=== PATIENT | female | born 1980 | race Hispanic/Latino ===

== ENCOUNTER 2016-09-01 08:49 | Emergency (ER) | payer OTHER ==
[~2016-09-01] VITALS: Ht 165.1 cm; Wt 80.3 kg
[~2016-09-01 08:49] MED LIST: ACHD5005 PO; AMOX-355 PO; AZTH250C PO; NAPR500T PO; RNT150T PO
[2016-09-01 10:10] LABS: BILIRUBIN,URINE NEGATIVE (NEGATIVE); KETONES,URINE NEGATIVE (NEGATIVE); LEUKOCYTE ESTERASE ,URINE 3+ (NEGATIVE); NITRITE,URINE NEGATIVE (NEGATIVE); PH,URINE 6.5 (5-9); PROTEIN,URINE 1+ (NEGATIVE); UROBILINOGEN,URINE NORMAL (NORMAL)
[2016-09-01 10:13] LABS: BASOPHILS % (AUTO) 1 % (0-10); EOSINOPHILS # (AUTO) 0.1 10^3/uL (0.0-0.3); EOSINOPHILS % (AUTO) 1 % (0-10); LYMPHOCYTES # (AUTO) 2.4 X 10^3 (1.0-4.0); LYMPHOCYTES % (AUTO) 38 % (12-44); MEAN CORPUSCULAR HEMOGLOBIN 29 PG (25-34); MEAN CORPUSCULAR HGB CONC 34 G/DL (32-36); MEAN CORPUSCULAR VOLUME 84 FL (80-99); MEAN PLATELET VOLUME 9.3 FL (7.4-10.4); MONOCYTES # (AUTO) 0.5 X 10^3 (0.0-1.0); MONOCYTES % (AUTO) 8 % (0-12); NEUTROPHILS # (AUTO) 3.4 X 10^3 (1.8-7.8); NEUTROPHILS % (AUTO) 53 % (42-75); PLATELET COUNT 286 10^3/uL (130-400); RED BLOOD COUNT 4.34 10^6/uL (4.35-5.85); RED CELL DISTRIBUTION WIDTH 13.5 % (10.0-14.5); WHITE BLOOD COUNT 6.5 10^3/uL (4.3-11.0)
[2016-09-01 10:18] LABS: WBC,URINE 25-50 /HPF
[2016-09-01 10:31] LABS: ALANINE AMINOTRANSFERASE 24 U/L (0-55); ALBUMIN 3.9 G/DL (3.2-4.5); ANION GAP 10 MMOL/L (5-14); ASPARTATE AMINO TRANSFERASE 21 U/L (5-34); BILIRUBIN,TOTAL 0.2 MG/DL (0.1-1.0); BLOOD UREA NITROGEN 18 MG/DL (7-18); BUN/CREATININE RATIO 28; CARBON DIOXIDE 21 MMOL/L (21-32); CHLORIDE 108 MMOL/L (98-107); CREATININE SERUM 0.64 MG/DL (0.60-1.30); GFR ESTIMATED > 60; GLUCOSE 100 MG/DL (70-105); LIPASE 22 U/L (8-78); POTASSIUM 4.3 MMOL/L (3.6-5.0); SODIUM 139 MMOL/L (135-145); TOTAL PROTEIN 6.9 G/DL (6.4-8.2)
--- NOTE | 2016-09-01 11:12 | Diagnostic Imaging Report ---
INDICATION: Pelvic pain and bleeding. Pus in urine. EXAMINATION: OB sonogram less than 14 weeks 09/01/2016. FINDINGS: Within the lower uterine segment there is a large cystic area consistent with a gestational sac. It contains a small pole with no heart tones noted. Adjacent fluid along the lower uterine segment is noted. The maternal ovaries not visualized. No significant free fluid is seen. IMPRESSION: 1. Abnormally located gestational sac containing a pole but without cardiac activity. Findings most consistent with a miscarriage in progress. Followup could be performed as clinically warranted to assure the exclusion of any retained products. Dictated by: Dictated on workstation # [id number]
--- NOTE | 2016-09-01 11:23 | ED GU-Female ---
General Chief Complaint: Abdominal/GI Problems Stated Complaint: STOMACH PAIN, 12 W Nursing Triage Note: C/O lower abd pain and hip pain. Passing mucous with blood. 12 weeks gravid. Had fever yesterday, nausea Nursing Sepsis Screen: No Definite Risk Source: patient, family, historic interpreter Exam Limitations: no limitations History of Present Illness Time seen by provider: 11:19 Initial Comments The patient is a 36-year-old female who presents with complaints of abdominal pain. She is 12 weeks . She is been seen very recently by Dr. Gonzales at [facility]. Through her son as the historic interpreter it is reported that she began to have vaginal bleeding and discharge on Friday of the past week. This has increased and today it is quite painful at times. Timing/Duration: week Severity/Quality: moderate Location: suprapubic Radiation: none Allergies and Home Medications Allergies Coded Allergies: NKANo Known Allergies (Unverified Allergy, Mild, 09/01/16) Constitutional: see HPI EENTM: no symptoms reported Respiratory: no symptoms reported Cardiovascular: no symptoms reported Gastrointestinal: abdominal pain Genitourinary: dysuria Expected Date of Delivery: Mar 07, 2017 Musculoskeletal: no symptoms reported Skin: no symptoms reported Psychiatric/Neurological: No Symptoms Reported Past Lffyruk-Ppxswi-Anpaqc Hx Patient Social History Alcohol Use: Denies Use Recreational Drug Use: No Smoking Status: Never a Smoker 2nd Hand Smoke Exposure: No Recent Foreign Travel: No Contact w/Someone Who Travel: No Recent Infectious Disease Expo: No Recent Hopitalizations: No Immunizations Up To Date Tetanus Booster (TDap): Less than 5yrs Surgeries HX Surgeries: No Respiratory Hx Respiratory Disorders: No Cardiovascular Hx Cardiac Disorders: No Neurological Hx Neurological Disorders: No Reproductive System Hx : 6 Hx Para: 5 Hx Total # of Abortions (Spona: 0 Hx Reproductive Disorders: No Genitourinary Hx Genitourinary Disorders: No Gastrointestinal Hx Gastrointestinal Disorders: No Musculoskeletal Hx Musculoskeletal Disorders: No Endocrine Hx Endocrine Disorders: No HEENT HX ENT Disorders: No Psychosocial Hx Psychiatric Problems: No Blood Transfusions Hx Blood Disorders: No Physical Exam Vital Signs Vital Sign - Last 12Hours 09/01/16 09:31 Temp 98.5 Pulse 79 Resp 18 B/P 112/62 Pulse Ox 96 Capillary Refill : Less Than 3 Seconds General Appearance: other (the patient is quite histrionic) HEENT: normal ENT inspection Cardiovascular: normal peripheral pulses regular rate, rhythm no edema no gallop no JVD no murmur Respiratory: chest non-tender lungs clear normal breath sounds no respiratory distress no accessory muscle use respiratory distress Gastrointestinal: normal bowel sounds non tender soft no organomegaly no pulsatile mass abnormal bowel sounds Progress/Results/Core Measures Results/Orders Lab Results Laboratory Tests Test 09/01/16 09:35 09/01/16 10:05 Range/Units Urine Bacteria TRACE /HPF Urine Bilirubin NEGATIVE NEGATIVE Urine Casts NONE /LPF Urine Clarity CLEAR Urine Color JASBIR H Urine Crystals NONE /LPF Urine Culture Indicated YES Urine Glucose (UA) NEGATIVE NEGATIVE Urine Ketones NEGATIVE NEGATIVE Urine Leukocyte Esterase 3+ H NEGATIVE Urine Mucus NEGATIVE /LPF Urine Nitrite NEGATIVE NEGATIVE Urine Protein 1+ H NEGATIVE Urine RBC >100 H /HPF Urine RBC (Auto) 5+ H NEGATIVE Urine Specific [place] 1.010 L 1.016-1.022 Urine Squamous Epithelial Cells 5-10 /HPF Urine Urobilinogen NORMAL NORMAL MG/DL Urine WBC 25-50 H /HPF Urine pH 6.5 5-9 Alanine Aminotransferase (ALT/SGPT) 24 0-55 U/L Albumin 3.9 3.2-4.5 G/DL Alkaline Phosphatase 77 40-136 U/L Anion Gap 10 5-14 MMOL/L Aspartate Amino Transf (AST/SGOT) 21 5-34 U/L BUN/Creatinine Ratio 28 Basophils # (Auto) 0.0 0.0-0.1 10^3/uL Basophils (%) (Auto) 1 0-10 % Blood Urea Nitrogen 18 7-18 MG/DL Calcium Level 9.0 8.5-10.1 MG/DL Carbon Dioxide Level 21 21-32 MMOL/L Chloride Level 108 H 98-107 MMOL/L Creatinine 0.64 0.60-1.30 MG/DL Eosinophils # (Auto) 0.1 0.0-0.3 10^3/uL Eosinophils (%) (Auto) 1 0-10 % Estimat Glomerular Filtration Rate > 60 Glucose Level 100 70-105 MG/DL Hematocrit 36 35-52 % Hemoglobin 12.5 11.5-16.0 G/DL Lipase 22 8-78 U/L Lymphocytes # (Auto) 2.4 1.0-4.0 X 10^3 Lymphocytes (%) (Auto) 38 12-44 % Mean Corpuscular Hemoglobin 29 25-34 PG Mean Corpuscular Hemoglobin Concent 34 32-36 G/DL Mean Corpuscular Volume 84 80-99 FL Mean Platelet Volume 9.3 7.4-10.4 FL Monocytes # (Auto) 0.5 0.0-1.0 X 10^3 Monocytes (%) (Auto) 8 0-12 % Neutrophils # (Auto) 3.4 1.8-7.8 X 10^3 Neutrophils (%) (Auto) 53 42-75 % Platelet Count 286 130-400 10^3/uL Potassium Level 4.3 3.6-5.0 MMOL/L Red Blood Count 4.34 L 4.35-5.85 10^6/uL Red Cell Distribution Width 13.5 10.0-14.5 % Sodium Level 139 135-145 MMOL/L Total Bilirubin 0.2 0.1-1.0 MG/DL Total Protein 6.9 6.4-8.2 G/DL White Blood Count 6.5 4.3-11.0 10^3/uL My Orders Orders-SONY HERNANDEZ MD Cbc With Automated Diff (09/01/16 09:12) Comprehensive Metabolic Panel (09/01/16 09:12) Lipase (09/01/16 09:12) Ua Culture If Indicated (09/01/16 09:12) Urine Culture (09/01/16 09:35) Vital Signs/I&O Vital Sign - Last 12Hours 09/01/16 09:31 Temp 98.5 Pulse 79 Resp 18 B/P 112/62 Pulse Ox 96 Blood Pressure Mean: 79 Departure Communication Progress Notes Sonographic report shows no heartbeat. The fetus is stated to be at the canal. Impression Impression: Primary Impression: Incomplete miscarriage Disposition: 01 HOME, SELF-CARE Condition: Stable/Unchanged Departure-Patient Inst. Decision time for Depature: 11:23 Referrals: [facility] (PCP/Family) Primary Care Physician Patient Instructions: Dealing With Miscarriage Add. Discharge Instructions: All discharge instructions reviewed with patient and/or family. Voiced understanding. Call Dr. Gonzales for further instructions tomorrow SONY HERNANDEZ MD Sep 01, 2016 11:23
[2016-09-01 11:56] VITALS: BP 118/70
== END 2016-09-01 11:56 | disposition home or self-care (01) ==
LOC: EDUNIT# 08:49 → ER 08:53
DX: O03.9 Complete or unspecified spontaneous abortion without complication (principal); Z3A.12 12 weeks gestation of pregnancy
CPT/HCPCS: 36415; 76801; 80053; 81000; 83690; 85025; 87088

== ENCOUNTER → 2016-10-07 | Outpatient (CLI) | payer OTHER ==
--- OUTSIDE RECORDS SUMMARY | 2016-10-07 08:15 | XMS REPORT | Continuity of Care Document ---
Author Author [facility] Organization [facility] Address Unknown Phone Unavailable Care Team Providers Care Inspector Motor Vehicles Name Role Phone [facility] PCP Insurance Providers Payer Name Policy Number Subscriber Name Relationship Unknown Eloisa Cheema 16 Self / Same As Patient Advance Directives Directive Response Recorded Date/Time Advance Directives No 09/01/16 9:31am Organ Donor No 09/01/16 9:31am Resuscitation Status Full Code 09/01/16 9:31am Chief Complaint and Reason for Visit Chief Complaint Abdominal/GI Problems Reason for Visit [id number] Problems Active Problems Medical Problem Onset Date Status Incomplete miscarriage Unknown Acute Ovarian cyst Unknown Acute Medications Past Home Medications Medication Directions Ordered Status Amoxicillin/Clavulanate Potassium 1 Each Tablet, 1 Each Oral Three Times A Day 05/15/09 Discontinued Azithromycin 250 Mg Tablet, 1 Tab Oral Daily 05/15/09 Discontinued Naproxen 500 Mg Tablet, 500 Mg Oral Twice A Day as needed for Pain 02/16/16 Discontinued Social History Social History Problem Response Recorded Date/Time Alcohol Use Denies Use 09/01/2016 9:31am Recreational Drug Use No 09/01/2016 9:31am Recent Foreign Travel No 09/01/2016 9:31am Recent Infectious Disease Exposure No 09/01/2016 9:31am Smoking Status Never a Smoker 09/01/2016 9:31am Recent Hopitalizations No 09/01/2016 9:31am Query Response Start Date Stop Date Smoking Status Never a Smoker Hospital Discharge Instructions No hospital discharge instructions. Plan of Care Discharge Date 09/01/16 11:56am Disposition 01 HOME, SELF-CARE Condition at Discharge Stable/Unchanged Instructions/Education Provided Dealing With Miscarriage Prescriptions See Medication Section Referrals [facility] - Primary Care Physician Additional Instructions/Education All discharge instructions reviewed with patient and/or family. Voiced understanding. Call Dr. Gonzales for further instructions tomorrow Functional Status No functional status results. Allergies, Adverse Reactions, Alerts Allergen Type Severity Reaction Status Last Updated NKANo Known Allergies Allergy Mild Active 09/01/16 Immunizations No immunization records. Vital Signs Acute Vital Signs Vital Response Date/Time Temperature (Fahrenheit) 98.5 degrees F (97.6 - 99.5) 09/01/2016 9:31am Temperature (Calculated Celsius) 36.09901 degrees C (36.4 - 37.5) 09/01/2016 9:31am Temperature Source Tympanic 09/01/2016 9:31am Pulse Rate (adult) 79 bpm (60 - 90) 09/01/2016 9:31am Respiratory Rate 18 bpm (12 - 24) 09/01/2016 9:31am O2 Sat by Pulse Oximetry 96 % (88 - 100) 09/01/2016 9:31am Blood Pressure 112/62 mm Hg 09/01/2016 9:31am Blood Pressure Mean 79 mm Hg 09/01/2016 9:31am Pain Numeric Pain Scale 10-Worst Possible Pain 09/01/2016 9:31am Height (Feet) 5 feet 09/01/2016 9:31am Height (Inches) 5 inches 09/01/2016 9:31am Height (Calculated Centimeters) 165.306657 cm 09/01/2016 9:31am Weight (Pounds) 177 pounds 09/01/2016 9:31am Weight (Calculated Kilograms) 80.246226 kilograms 09/01/2016 9:31am Capillary Refill Capillary Refill Less Than 3 Seconds 09/01/2016 9:31am Height 5 ft 5 in Weight 177 lb Body Mass Index 29.5 kg/m^2 Results Laboratory Results Test Name Result Units Flags Reference Collection Date/Time Result Date/ Time Comments White Blood Count 6.5 10^3/uL 4.3-11.0 09/01/2016 10:05am 09/01/2016 10 :13am Red Blood Count 4.34 10^6/uL L 4.35-5.85 09/01/2016 10:05am 09/01/2016 10 :13am Hemoglobin 12.5 G/DL 11.5-16.0 09/01/2016 10:05am 09/01/2016 10:13am Hematocrit 36 % 35-52 09/01/2016 10:05am 09/01/2016 10:13am Mean Corpuscular Volume 84 FL 80-99 09/01/2016 10:05am 09/01/2016 10: 13am Mean Corpuscular Hemoglobin 29 PG 25-34 09/01/2016 10:05am 09/01/2016 10:13am Mean Corpuscular Hemoglobin Concent 34 G/DL 32-36 09/01/2016 10:05am 10:13am Red Cell Distribution Width 13.5 % 10.0-14.5 09/01/2016 10:05am 2016 10:13am Platelet Count 286 10^3/uL 130-400 09/01/2016 10:05am 09/01/2016 10: 13am Mean Platelet Volume 9.3 FL 7.4-10.4 09/01/2016 10:05am 09/01/2016 10: 13am Neutrophils (%) (Auto) 53 % 42-75 09/01/2016 10:05am 09/01/2016 10: 13am Lymphocytes (%) (Auto) 38 % 12-44 09/01/2016 10:05am 09/01/2016 10: 13am Monocytes (%) (Auto) 8 % 0-12 09/01/2016 10:05am 09/01/2016 10:13am Eosinophils (%) (Auto) 1 % 0-10 09/01/2016 10:05am 09/01/2016 10:13am Basophils (%) (Auto) 1 % 0-10 09/01/2016 10:05am 09/01/2016 10:13am Neutrophils # (Auto) 3.4 X 10^3 1.8-7.8 09/01/2016 10:05am 09/01/2016 10:13am Lymphocytes # (Auto) 2.4 X 10^3 1.0-4.0 09/01/2016 10:05am 09/01/2016 10:13am Monocytes # (Auto) 0.5 X 10^3 0.0-1.0 09/01/2016 10:05am 09/01/2016 10: 13am Eosinophils # (Auto) 0.1 10^3/uL 0.0-0.3 09/01/2016 10:05am 09/01/2016 10:13am Basophils # (Auto) 0.0 10^3/uL 0.0-0.1 09/01/2016 10:05am 09/01/2016 10 :13am Urine Color JASBIR * 09/01/2016 9:35am 09/01/2016 10:18am Urine Clarity CLEAR 09/01/2016 9:35am 09/01/2016 10:18am Urine pH 6.5 5-9 09/01/2016 9:35am 09/01/2016 10:18am Urine Specific [place] 1.010 * 1.016-1.022 09/01/2016 9:35am 2016 10:18am Urine Protein 1+ * NEGATIVE 09/01/2016 9:35am 09/01/2016 10:18am Urine Glucose (UA) NEGATIVE NEGATIVE 09/01/2016 9:35am 09/01/2016 10: 18am Urine RBC (Auto) 5+ * NEGATIVE 09/01/2016 9:35am 09/01/2016 10:18am Urine Ketones NEGATIVE NEGATIVE 09/01/2016 9:35am 09/01/2016 10:18am Urine Nitrite NEGATIVE NEGATIVE 09/01/2016 9:35am 09/01/2016 10:18am Urine Bilirubin NEGATIVE NEGATIVE 09/01/2016 9:35am 09/01/2016 10: 18am Urine Urobilinogen NORMAL MG/DL NORMAL 09/01/2016 9:35am 09/01/2016 10: 18am Urine Leukocyte Esterase 3+ * NEGATIVE 09/01/2016 9:35am 09/01/2016 10: 18am Urine RBC >100 /HPF * 09/01/2016 9:35am 09/01/2016 10:18am Urine WBC 25-50 /HPF * 09/01/2016 9:35am 09/01/2016 10:18am Urine Bacteria TRACE /HPF 09/01/2016 9:35am 09/01/2016 10:18am Urine Squamous Epithelial Cells 5-10 /HPF 09/01/2016 9:35am 2016 10:18am Urine Crystals NONE /LPF 09/01/2016 9:35am 09/01/2016 10:18am Urine Casts NONE /LPF 09/01/2016 9:35am 09/01/2016 10:18am Urine Mucus NEGATIVE /LPF 09/01/2016 9:35am 09/01/2016 10:18am Urine Culture Indicated YES 09/01/2016 9:35am 09/01/2016 10:18am Sodium Level 139 MMOL/L 135-145 09/01/2016 10:05am 09/01/2016 10:32am Potassium Level 4.3 MMOL/L 3.6-5.0 09/01/2016 10:05am 09/01/2016 10: 32am Chloride Level 108 MMOL/L H 98-107 09/01/2016 10:05am 09/01/2016 10:32am Carbon Dioxide Level 21 MMOL/L 21-32 09/01/2016 10:05am 09/01/2016 10: 32am Anion Gap 10 MMOL/L 5-14 09/01/2016 10:05am 09/01/2016 10:32am Blood Urea Nitrogen 18 MG/DL 7-18 09/01/2016 10:05am 09/01/2016 10: 32am Creatinine 0.64 MG/DL 0.60-1.30 09/01/2016 10:05am 09/01/2016 10:32am BUN/Creatinine Ratio 28 09/01/2016 10:05am 09/01/2016 10:32am Estimat Glomerular Filtration Rate > 60 09/01/2016 10:052016 10:32am GFR INTERPRETIVE DATA UNITS FOR ESTIMATED GFR (eGFR): mL/min/1.73 M2 REFERENCE RANGE FOR ESTIMATED GFR (eGFR) eGFR NORMAL eGFR >60 MODERATELY DECREASED eGFR 30-59 SEVERLY DECREASED eGFR 15-29 KIDNEY FAILURE <15 (OR DIALYSIS) Glucose Level 100 MG/DL 70-105 09/01/2016 10:05am 09/01/2016 10:32am Calcium Level 9.0 MG/DL 8.5-10.1 09/01/2016 10:05am 09/01/2016 10:32am Total Bilirubin 0.2 MG/DL 0.1-1.0 09/01/2016 10:05am 09/01/2016 10: 32am Alkaline Phosphatase 77 U/L 40-136 09/01/2016 10:05am 09/01/2016 10: 32am Aspartate Amino Transf (AST/SGOT) 21 U/L 5-34 09/01/2016 10:05am 2016 10:32am Alanine Aminotransferase (ALT/SGPT) 24 U/L 0-55 09/01/2016 10:05am 06/2017 10:32am Total Protein 6.9 G/DL 6.4-8.2 09/01/2016 10:05am 09/01/2016 10:32am Albumin 3.9 G/DL 3.2-4.5 09/01/2016 10:05am 09/01/2016 10:32am Lipase 22 U/L 8-78 09/01/2016 10:05am 09/01/2016 10:32am Procedures No known history of procedures. Encounters Encounter Location Arrival/Admit Date Discharge/Depart Date Attending Provider Registered Emergency Room [facility] 09/01/16 8:53am SONY HERNANDEZ MD Recent Diagnosis
--- NOTE | 2016-10-07 13:52 | Diagnostic Imaging Report ---
EXAMINATION: Bilateral diagnostic mammogram with a Computer Aided Detection (CAD) system. COMPARISON: No prior studies are available for comparison. INDICATION: Outer left breast lump. FINDINGS: The breasts are composed of heterogeneously dense parenchyma which may decrease mammographic sensitivity. There is a lateral left breast lump marker with no underlying mammographic abnormality seen. No mass, architectural distortion, or suspicious cluster of calcifications is seen. IMPRESSION: No mammographic evidence of malignancy. The ultrasound evaluation is pending. ACR BI-RADS Category 0: Incomplete. (Needs additional imaging evaluation). Result letter will be mailed to the patient. Note: At least 10% of breast cancer is not imaged by mammography. Dictated by: Dictated on workstation # [id number]
--- NOTE | 2016-10-07 14:03 | Diagnostic Imaging Report ---
EXAMINATION: Left breast ultrasound. INDICATION: Left breast lump. FINDINGS: The area of the lump around the 3 o'clock zone was scanned with no underlying abnormality seen. IMPRESSION: Negative study. Clinical followup is recommended. ACR BI-RADS Category 1: Negative. Dictated by: Dictated on workstation # [id number]
== END ==
LOC: RAD 08:11
PROVIDERS: ATTEND Family Medicine
DX: N63 Unspecified lump in breast (principal)
CPT/HCPCS: 76642; 77066

== ENCOUNTER 2017-08-11 12:48 | Emergency (ER) | payer SELFPAY ==
[~2017-08-11] VITALS: Ht 152.4 cm; Wt 81.6 kg
[~2017-08-11 12:48] MED LIST changes: +NAPR-1071 PO; -NAPR500T PO
--- OUTSIDE RECORDS SUMMARY | 2017-08-11 12:55 | XMS REPORT | Continuity of Care Document ---
Author Author [facility] Organization [facility] Address Unknown Phone Unavailable Allergies Active Description Code Type Severity Reaction Onset Reported/Identified Relationship to Patient Clinical Status Yes NKANo Known Allergies NKA Miscellaneous Allergy Mild N/A 09/01/2016 Medications There is no data. Problems Date Dx Coded Attending Type Code Diagnosis Diagnosed By 12/28/2010 Ot 789.00 ABDOMINAL PAIN, UNSPECIFIED SITE 04/04/2011 Ot 787.91 DIARRHEA 11/17/2011 Ot 650 NORMAL DELIVERY 11/17/2011 Ot V06.1 DIPHTHERIA- TETANUS-PERTUSSIS, COMBINED [ 11/17/2011 Ot V27.0 DELIVER- SINGLE LIVEBORN 07/03/2015 Ot 780.60 07/03/2015 Ot 783.0 07/03/2015 Ot 789.00 07/03/2015 Ot 623.8 07/03/2015 Ot 654.73 07/03/2015 Ot 652.23 07/03/2015 BHUPENDRA HARGROVE, CAMMIE Hitchcock Ot 729.5 07/03/2015 BHUPENDRA HARGROVE, CAMMIE Hitchcock Ot 729.81 07/11/2015 Ot 780.60 07/11/2015 Ot 783.0 07/11/2015 Ot 789.00 07/11/2015 Ot 623.8 07/11/2015 Ot 654.73 07/11/2015 Ot 652.23 07/11/2015 CAMMIE HUIZAR MD Ot 729.5 07/11/2015 BHUPENDRA HARGROVE, CAMMIE Hitchcock Ot 729.81 07/11/2015 CAMMIE HUIZAR MD Ot 729.5 07/11/2015 CAMMIE HUIZAR MD Ot 729.81 07/11/2015 BHUPENDRA HARGROVE, CAMMIE Hitchcock Ot 729.5 07/11/2015 CAMMIE HUIZAR MD Ot 729.81 07/20/2015 CAMMIE HUIZAR MD Ot 729.5 07/20/2015 CAMMIE HUIZAR MD Ot 729.81 01/08/2016 Ot 780.60 FEVER, UNSPECIFIED 01/08/2016 Ot 783.0 ANOREXIA 01/08/2016 Ot 789.00 ABDOMINAL PAIN, UNSPECIFIED SITE 01/08/2016 Ot 623.8 NONINFLAM DIS VAGINA NEC 01/08/2016 Ot 654.73 ABNORM VAGINA-ANTEPARTUM 01/08/2016 Ot 652.23 BREECH PRESENT-ANTEPART 01/08/2016 BHUPENDRA HARGROVE, CAMMIE Hitchcock Ot 729.5 PAIN IN LIMB 01/08/2016 BHUPENDRA HARGROVE, CAMMIE Hitchcock Ot 729.81 SWELLING OF LIMB 01/09/2016 CAMMIE HUIZAR MD Ot R10.2 PELVIC AND PERINEAL PAIN 01/09/2016 CAMMIE HUIZAR MD Ot R51 HEADACHE 02/16/2016 Ot 780.60 FEVER, UNSPECIFIED 02/16/2016 Ot 783.0 ANOREXIA 02/16/2016 Ot 789.00 ABDOMINAL PAIN, UNSPECIFIED SITE 02/16/2016 Ot 623.8 NONINFLAM DIS VAGINA NEC 02/16/2016 Ot 654.73 ABNORM VAGINA-ANTEPARTUM 02/16/2016 Ot 652.23 BREECH PRESENT-ANTEPART 02/16/2016 CAMMIE HUIZAR MD Ot R10.2 PELVIC AND PERINEAL PAIN 02/16/2016 CAMMIE HUIZAR MD Ot R51 HEADACHE 02/16/2016 Ot N83.20 UNSPECIFIED OVARIAN CYSTS 02/16/2016 Ot R10.2 PELVIC AND PERINEAL PAIN 02/19/2016 Ot 780.60 FEVER, UNSPECIFIED 02/19/2016 Ot 783.0 ANOREXIA 02/19/2016 Ot 789.00 ABDOMINAL PAIN, UNSPECIFIED SITE 02/19/2016 Ot 623.8 NONINFLAM DIS VAGINA NEC 02/19/2016 Ot 654.73 ABNORM VAGINA-ANTEPARTUM 02/19/2016 Ot 652.23 BREECH PRESENT-ANTEPART 02/19/2016 CAMMIE HUIZAR MD Ot R10.2 PELVIC AND PERINEAL PAIN 02/19/2016 CAMMIE HUIZAR MD Ot R51 HEADACHE 02/26/2016 Ot 780.60 FEVER, UNSPECIFIED 02/26/2016 Ot 783.0 ANOREXIA 02/26/2016 Ot 789.00 ABDOMINAL PAIN, UNSPECIFIED SITE 02/26/2016 Ot 623.8 NONINFLAM DIS VAGINA NEC 02/26/2016 Ot 654.73 ABNORM VAGINA-ANTEPARTUM 02/26/2016 Ot 652.23 BREECH PRESENT-ANTEPART 02/26/2016 CAMMIE HUIZAR MD Ot R10.2 PELVIC AND PERINEAL PAIN 02/26/2016 CAMMIE HUIZAR MD Ot R51 HEADACHE 03/06/2016 Ot 780.60 FEVER, UNSPECIFIED 03/06/2016 Ot 783.0 ANOREXIA 03/06/2016 Ot 789.00 ABDOMINAL PAIN, UNSPECIFIED SITE 03/06/2016 Ot 623.8 NONINFLAM DIS VAGINA NEC 03/06/2016 Ot 654.73 ABNORM VAGINA-ANTEPARTUM 03/06/2016 Ot 652.23 BREECH PRESENT-ANTEPART 03/06/2016 CAMMIE HUIZAR MD Ot R10.2 PELVIC AND PERINEAL PAIN 03/06/2016 CAMMIE HUIZAR MD Ot R51 HEADACHE 08/30/2016 Ot 623.8 NONINFLAM DIS VAGINA NEC 08/30/2016 Ot 654.73 ABNORM VAGINA-ANTEPARTUM 08/30/2016 Ot 652.23 BREECH PRESENT-ANTEPART 08/30/2016 CAMMIE HUIZAR MD Ot R10.2 PELVIC AND PERINEAL PAIN 08/30/2016 CAMMIE HUIZAR MD Ot R51 HEADACHE 09/01/2016 SONY HERNANDEZ MD Ot O03.9 COMPLETE OR UNSP SPONTANEOUS [place] 09/01/2016 SONY HERNANDEZ MD Ot O20.0 THREATENED 09/01/2016 SONY HERNANDEZ MD Ot Z3A.12 12 WEEKS GESTATION OF 09/02/2016 SONY HERNANDEZ MD Ot O03.9 COMPLETE OR UNSP SPONTANEOUS [place] 09/02/2016 SONY HERNANDEZ MD Ot O20.0 THREATENED 09/02/2016 SONY HERNANDEZ MD Ot Z3A.12 12 WEEKS GESTATION OF 09/02/2016 Ot 623.8 NONINFLAM DIS VAGINA NEC 09/02/2016 Ot 654.73 ABNORM VAGINA-ANTEPARTUM 09/02/2016 Ot 652.23 BREECH PRESENT-ANTEPART 09/02/2016 CAMMIE HUIZAR MD Ot R10.2 PELVIC AND PERINEAL PAIN 09/02/2016 CAMMIE HUIZAR MD Ot R51 HEADACHE 10/07/2016 Ot 623.8 NONINFLAM DIS VAGINA NEC 10/07/2016 Ot 654.73 ABNORM VAGINA-ANTEPARTUM 10/07/2016 Ot 652.23 BREECH PRESENT-ANTEPART 10/07/2016 CAMMIE HUIZAR MD Ot R10.2 PELVIC AND PERINEAL PAIN 10/07/2016 CAMMIE HUIZAR MD Ot R51 HEADACHE 10/08/2016 RENALDO VIRAMONTES MD, Ot N63 UNSPECIFIED LUMP IN BREAST 10/24/2016 RENALDO VIRAMONTES MD, Ot N63 UNSPECIFIED LUMP IN BREAST Procedures Code Description Performed By Performed On 73.59 MANUAL ASSIST DELIV NEC 11/15/2011 Results Test Result Range Complete urinalysis with reflex to culture - 09/01/16 09:35 Urine color determination JASBIR NRG Urine clarity determination CLEAR NRG Urine pH measurement by test strip 6.5 5-9 Specific gravity of urine by test strip 1.010 1.016- 1.022 Urine protein assay by test strip, semi-quantitative 1+ NEGATIVE Urine glucose detection by automated test strip NEGATIVE NEGATIVE Erythrocytes detection in urine sediment by light microscopy 5+ NEGATIVE Urine ketones detection by automated test strip NEGATIVE NEGATIVE Urine nitrite detection by test strip NEGATIVE NEGATIVE Urine total bilirubin detection by test strip NEGATIVE NEGATIVE Urine urobilinogen measurement by automated test strip (mass/volume) NORMAL NORMAL Urine leukocyte esterase detection by dipstick 3+ NEGATIVE Automated urine sediment erythrocyte count by microscopy (number/high power field) > [HPF] NRG Automated urine sediment leukocyte count by microscopy (number/high power field ) [HPF] NRG Bacteria detection in urine sediment by light microscopy TRACE NRG Squamous epithelial cells detection in urine sediment by light microscopy 5-10 NRG Crystals detection in urine sediment by light microscopy NONE NRG Casts detection in urine sediment by light microscopy NONE NRG Mucus detection in urine sediment by light microscopy NEGATIVE NRG Complete urinalysis with reflex to culture YES NRG Bacterial urine culture - 09/01/16 09:35 URINE CULTURE RESULTS <10,000/ML NRG Complete blood count (CBC) with automated white blood cell (WBC) differential - 09/01/16 10:05 Blood leukocytes automated count (number/volume) 6.5 10*3/uL 4.3-11.0 Blood erythrocytes automated count (number/volume) 4.34 10*6/uL 4.35-5.85 Venous blood hemoglobin measurement (mass/volume) 12.5 g/dL 11.5-16.0 Blood hematocrit (volume fraction) 36 % 35-52 Automated erythrocyte mean corpuscular volume 84 [foz_us] 80-99 Automated erythrocyte mean corpuscular hemoglobin (mass per erythrocyte) 29 pg 25-34 Automated erythrocyte mean corpuscular hemoglobin concentration measurement ( mass/volume) 34 g/dL 32-36 Automated erythrocyte distribution width ratio 13.5 % 10.0-14.5 Automated blood platelet count (count/volume) 286 10*3/uL 130-400 Automated blood platelet mean volume measurement 9.3 [foz_us] 7.4-10.4 Automated blood neutrophils/100 leukocytes 53 % 42-75 Automated blood lymphocytes/100 leukocytes 38 % 12-44 Blood monocytes/100 leukocytes 8 % 0-12 Automated blood eosinophils/100 leukocytes 1 % 0-10 Automated blood basophils/100 leukocytes 1 % 0-10 Blood neutrophils automated count (number/volume) 3.4 10*3 1.8-7.8 Blood lymphocytes automated count (number/volume) 2.4 10*3 1.0-4.0 Blood monocytes automated count (number/volume) 0.5 10*3 0.0-1.0 Automated eosinophil count 0.1 10*3/uL 0.0-0.3 Automated blood basophil count (count/volume) 0.0 10*3/uL 0.0-0.1 Comprehensive metabolic panel - 09/01/16 10:05 Serum or plasma sodium measurement (moles/volume) 139 mmol/L 135-145 Serum or plasma potassium measurement (moles/volume) 4.3 mmol/L 3.6-5.0 Serum or plasma chloride measurement (moles/volume) 108 mmol/L 98-107 Carbon dioxide 21 mmol/L 21-32 Serum or plasma anion gap determination (moles/volume) 10 mmol/L 5-14 Serum or plasma urea nitrogen measurement (mass/volume) 18 mg/dL 7-18 Serum or plasma creatinine measurement (mass/volume) 0.64 mg/dL 0.60-1.30 Serum or plasma urea nitrogen/creatinine mass ratio 28 NRG Serum or plasma creatinine measurement with calculation of estimated glomerular filtration rate > NRG Serum or plasma glucose measurement (mass/volume) 100 mg/dL 70-105 Serum or plasma calcium measurement (mass/volume) 9.0 mg/dL 8.5-10.1 Serum or plasma total bilirubin measurement (mass/volume) 0.2 mg/dL 0.1-1.0 Serum or plasma alkaline phosphatase measurement (enzymatic activity/volume) 77 U/L 40-136 Serum or plasma aspartate aminotransferase measurement (enzymatic activity/ volume) 21 U/L 5-34 Serum or plasma alanine aminotransferase measurement (enzymatic activity/volume ) 24 U/L 0-55 Serum or plasma protein measurement (mass/volume) 6.9 g/dL 6.4-8.2 Serum or plasma albumin measurement (mass/volume) 3.9 g/dL 3.2-4.5 Lipase - 09/01/16 10:05 Lipase 22 U/L 8-78 Encounters ACCT No. Visit Date/Time Discharge Status Pt. Type Provider Facility Loc./Unit Complaint [id number] 10/07/2016 08:11:00 10/07/2016 23:59:59 CLS Outpatient ANA M HARGROVE, RENALDO Harmon [facility] RAD BREAST MASS [id number] 09/01/2016 08:53:00 09/01/2016 11:56:00 DIS Emergency DAVDI HARGROVE, SONY Torres [facility] ER STOMACH PAIN, 12 W [id number] 01/08/2016 14:44:00 01/08/2016 23:59:59 CLS Outpatient CAMMIE HUIZAR MD [facility] RAD PELVIC ABD PAIN, HEADACHES [id number] 04/10/2015 14:21:00 04/10/2015 23:59:59 CLS Outpatient CAMMIE HUIZAR MD [facility] RAD [id number] 12/21/2012 10:20:00 12/21/2012 23:59:59 CLS Outpatient [id number] 02/16/2016 14:47:00 Document Registration [id number] 11/15/2011 11:39:00 Document Registration [id number] 07/23/2011 13:41:00 Document Registration [id number] 06/11/2011 12:08:00 Document Registration [id number] 01/04/2011 09:57:00 Document Registration [id number] 12/31/2010 10:47:00 Document Registration [id number] 12/28/2010 15:31:00 Document Registration
[2017-08-11 13:59] LABS: BASOPHILS % (AUTO) 0 % (0-10); EOSINOPHILS % (AUTO) 0 % (0-10); HEMATOCRIT 32 % (35-52); HEMOGLOBIN 11.3 G/DL (11.5-16.0); LYMPHOCYTES % (AUTO) 21 % (12-44); MEAN CORPUSCULAR HEMOGLOBIN 29 PG (25-34); MEAN CORPUSCULAR HGB CONC 35 G/DL (32-36); MEAN CORPUSCULAR VOLUME 84 FL (80-99); MEAN PLATELET VOLUME 9.7 FL (7.4-10.4); MONOCYTES # (AUTO) 0.5 X 10^3 (0.0-1.0); MONOCYTES % (AUTO) 5 % (0-12); NEUTROPHILS # (AUTO) 7.3 X 10^3 (1.8-7.8); NEUTROPHILS % (AUTO) 74 % (42-75); PLATELET COUNT 250 10^3/uL (130-400); RED BLOOD COUNT 3.84 10^6/uL (4.35-5.85); WHITE BLOOD COUNT 9.9 10^3/uL (4.3-11.0)
[2017-08-11 14:00] LABS: BILIRUBIN,URINE NEGATIVE (NEGATIVE); CLARITY,URINE CLEAR; COLOR,URINE YELLOW; GLUCOSE, URINE (UA) NEGATIVE (NEGATIVE); KETONES,URINE NEGATIVE (NEGATIVE); LEUKOCYTE ESTERASE ,URINE 1+ (NEGATIVE); NITRITE,URINE NEGATIVE (NEGATIVE); PH,URINE 6 (5-9); PROTEIN,URINE NEGATIVE (NEGATIVE); UROBILINOGEN,URINE NORMAL (NORMAL)
[2017-08-11] MEDS ORDERED: NS IV 1000 ML 1,000 ML IV SCH (14:00)
[2017-08-11] MEDS ORDERED: ANTACID SUSP 30 ML UDC (MYLANTA) PO ONE ×2 (14:00→16:45)
[2017-08-11] MEDS ORDERED: ONDANSETRON 4 MG/2 ML (SDV) Z0FRAN IVP ONE (14:00)
[2017-08-11] MEDS ORDERED: fentaNYL INJECTION 100 MCG/2 ML AMP IVP ONE ×2 (14:00→16:45)
[2017-08-11] MEDS ORDERED: LIDOCAINE 2% VISCOUS 15 ML UDC PO ONE ×2 (14:00→16:45)
--- NOTE | 2017-08-11 14:02 | ED Abdominal Pain ---
General Chief Complaint: Abdominal/GI Problems Stated Complaint: ABD PAIN Nursing Triage Note: AMBULATED TO ROOM 06. COMPLAINS OF UPPER ABD PAIN SINCE FRIDAY. DENIES N/V/D. Sepsis Screen: No Definite Risk Source of Information: Patient, Family Exam Limitations: Language Barrier History of Present Illness Date Seen by Provider: Aug 11, 2017 Time Seen by Provider: 13:57 Initial Comments This 37-year-old female presents with a complaint of epigastric pain that has been present and progressive for the last 2 days. The patient's pain is sharp in nature and radiates in a bandlike fashion around her upper abdomen. The patient's pain is made worse with eating food. The patient's pain is severe in quality and sharp in nature. The patient has had similar pain with her last 2 pregnancies. Patient's present pain is the worst that she has experienced. The patient denies associated hematemesis or black or tarry stools. The patient denies previous gallbladder disease. Allergies and Home Medications Allergies Coded Allergies: NKANo Known Allergies (Unverified Allergy, Mild, 09/01/16) Review of Systems Constitutional: No fever EENTM: No Eye Pain, No Ear Pain Respiratory: Denies Cough, Denies Shortness of Air Cardiovascular: Denies Chest Pain, Denies Palpitations Gastrointestinal: See HPI, Denies Abdomen Distended, Abdominal Pain, Denies Diarrhea, Denies Nausea, Denies Vomiting Genitourinary: Denies Burning, Denies Frequency Musculoskeletal: No back pain, No joint swelling, No muscle pain Skin: No rash Psychiatric/Neurological: No Symptoms Reported Endocrine: No Symptoms Reported Hematologic/Lymphatic: No Symptoms Reported Past Jqemish-Hncizw-Ckphzp Hx Patient Social History 2nd Hand Smoke Exposure: No Recent Foreign Travel: No Contact w/Someone Who Travel: No Recent Infectious Disease Expo: No Recent Hopitalizations: No Immunizations Up To Date Tetanus Booster (TDap): Less than 5yrs Surgeries History of Surgeries: No Respiratory History of Respiratory Disorde: No Cardiovascular History of Cardiac Disorders: No Neurological History of Neurological Disord: No Reproductive System : No Last Menstrual Period: Jul 28, 2017 Hx Reproductive Disorders: No Gastrointestinal History of Gastrointestinal Di: No Musculoskeletal History of Musculoskeletal Dis: No Endocrine History of Endocrine Disorders: No Psychosocial History of Psychiatric Problem: No Blood Transfusions History of Blood Disorders: No Reviewed Nursing Assessment Reviewed/Agree w Nursing PMH: Yes Physical Exam Vital Signs VS - Last 72 Hours, by Label 08/11/17 13:24 Temp 99.3 Pulse 73 Resp 18 B/P (MAP) 114/73 (87) Pulse Ox 94 O2 Delivery Room Air Capillary Refill : Less Than 3 Seconds General Appearance: WD/WN, severe distress HEENT: normal ENT inspection Neck: non-tender, full range of motion, supple, normal inspection Respiratory: chest non-tender, lungs clear, normal breath sounds, no respiratory distress Cardiovascular: regular rate, rhythm, no murmur Gastrointestinal: abnormal bowel sounds, tenderness (hypoactive bowel sounds were present in the epigastric area.), No mass Extremities: normal range of motion, non-tender, normal inspection Back: normal inspection Neurologic/Psychiatric: no motor/sensory deficits, alert, normal mood/affect Skin: normal color, warm/dry, No rash Progress/Results/Core Measures Results/Orders Lab Results Laboratory Tests Test 08/11/17 13:40 08/11/17 13:56 Range/Units White Blood Count 9.9 4.3-11.0 10^3/uL Red Blood Count 3.84 L 4.35-5.85 10^6/uL Hemoglobin 11.3 L 11.5-16.0 G/DL Hematocrit 32 L 35-52 % Mean Corpuscular Volume 84 80-99 FL Mean Corpuscular Hemoglobin 29 25-34 PG Mean Corpuscular Hemoglobin Concent 35 32-36 G/DL Red Cell Distribution Width 13.0 10.0-14.5 % Platelet Count 250 130-400 10^3/uL Mean Platelet Volume 9.7 7.4-10.4 FL Neutrophils (%) (Auto) 74 42-75 % Lymphocytes (%) (Auto) 21 12-44 % Monocytes (%) (Auto) 5 0-12 % Eosinophils (%) (Auto) 0 0-10 % Basophils (%) (Auto) 0 0-10 % Neutrophils # (Auto) 7.3 1.8-7.8 X 10^3 Lymphocytes # (Auto) 2.0 1.0-4.0 X 10^3 Monocytes # (Auto) 0.5 0.0-1.0 X 10^3 Eosinophils # (Auto) 0.0 0.0-0.3 10^3/uL Basophils # (Auto) 0.0 0.0-0.1 10^3/uL Sodium Level 139 135-145 MMOL/L Potassium Level 3.3 L 3.6-5.0 MMOL/L Chloride Level 107 98-107 MMOL/L Carbon Dioxide Level 23 21-32 MMOL/L Anion Gap 9 5-14 MMOL/L Blood Urea Nitrogen 9 7-18 MG/DL Creatinine 0.54 L 0.60-1.30 MG/DL Estimat Glomerular Filtration Rate > 60 BUN/Creatinine Ratio 17 Glucose Level 101 70-105 MG/DL Calcium Level 8.2 L 8.5-10.1 MG/DL Total Bilirubin 0.3 0.1-1.0 MG/DL Aspartate Amino Transf (AST/SGOT) 19 5-34 U/L Alanine Aminotransferase (ALT/SGPT) 31 0-55 U/L Alkaline Phosphatase 70 40-136 U/L Total Protein 6.4 6.4-8.2 GM/DL Albumin 3.5 3.2-4.5 GM/DL Lipase 16 8-78 U/L Urine Color YELLOW Urine Clarity CLEAR Urine pH 6 5-9 Urine Specific [place] 1.015 L 1.016-1.022 Urine Protein NEGATIVE NEGATIVE Urine Glucose (UA) NEGATIVE NEGATIVE Urine Ketones NEGATIVE NEGATIVE Urine Nitrite NEGATIVE NEGATIVE Urine Bilirubin NEGATIVE NEGATIVE Urine Urobilinogen NORMAL NORMAL MG/DL Urine Leukocyte Esterase 1+ H NEGATIVE Urine RBC (Auto) 5+ H NEGATIVE Urine RBC 10-25 H /HPF Urine WBC 2-5 /HPF Urine Squamous Epithelial Cells 10-25 H /HPF Urine Crystals NONE /LPF Urine Bacteria TRACE /HPF Urine Casts NONE /LPF Urine Mucus MODERATE H /LPF Urine Culture Indicated YES My Orders Orders - CHIN BERRIOS MD Ct Abdomen/Pelvis W (08/11/17 13:52) Cbc With Automated Diff (08/11/17 13:52) Comprehensive Metabolic Panel (08/11/17 13:52) Lipase (08/11/17 13:52) Ua Culture If Indicated (08/11/17 13:52) Ns Iv 1000 Ml (Sodium Chloride 0.9%) (08/11/17 14:00) Fentanyl Injection (Sublimaze Injection (08/11/17 14:00) Ondansetron Injection (Zofran Injectio (08/11/17 14:00) Lidocaine 2% Viscous 15 Ml (Xylocaine Vi (08/11/17 14:00) Antacid Suspension (Mylanta Suspension (08/11/17 14:00) Iohexol Injection (Omnipaque 350 Mg/Ml 1 (08/11/17 14:15) Ns (Ivpb) (Sodium Chloride 0.9% Ivpb Bag (08/11/17 14:15) Urine Culture (08/11/17 13:56) Lidocaine 2% Viscous 15 Ml (Xylocaine Vi (08/11/17 16:45) Antacid Suspension (Mylanta Suspension (08/11/17 16:45) Fentanyl Injection (Sublimaze Injection (08/11/17 16:45) Ceftriaxone Injection (Rocephin Injectio (08/11/17 17:30) Famotidine Injection (Pepcid Injection) (08/11/17 17:30) Medications Given in ED Current Medications Medications Dose Ordered Sig/Nell Route Start Time Stop Time Status Last Admin Dose Admin Al Hydrox/Mg Hydrox/Simethicone 30 ml ONCE ONCE PO 08/11/17 14:00 08/11/17 14:01 DC 08/11/17 14:10 30 ML Ceftriaxone Sodium 1000 mg/ Dextrose/Water 50 ml @ 100 mls/hr ONCE ONCE IV 08/11/17 17:30 08/11/17 17:59 DC 08/11/17 17:46 100 MLS/HR Famotidine 20 mg ONCE ONCE IVP 08/11/17 17:30 08/11/17 17:31 DC 08/11/17 17:46 20 MG Fentanyl Citrate 50 mcg ONCE ONCE IVP 08/11/17 14:00 08/11/17 14:01 DC 08/11/17 14:09 50 MCG Fentanyl Citrate 50 mcg ONCE ONCE IVP 08/11/17 16:45 08/11/17 16:46 DC 08/11/17 16:54 50 MCG Iohexol 100 ml ONCE ONCE IV 08/11/17 14:15 08/11/17 14:16 DC 08/11/17 14:50 100 ML Lidocaine HCl 5 ml ONCE ONCE PO 08/11/17 14:00 08/11/17 14:01 DC 08/11/17 14:10 5 ML Ondansetron HCl 4 mg ONCE ONCE IVP 08/11/17 14:00 08/11/17 14:01 DC 08/11/17 14:09 4 MG Sodium Chloride 100 ml ONCE ONCE IV 08/11/17 14:15 08/11/17 14:16 DC 08/11/17 14:50 80 ML Vital Signs/I&O Vital Sign - Last 12Hours 08/11/17 13:24 Temp 99.3 Pulse 73 Resp 18 B/P (MAP) 114/73 (87) Pulse Ox 94 O2 Delivery Room Air Blood Pressure Mean: 87 Progress Note : Time: 17:26 Progress Note The patient's CT of the abdomen and pelvis was unremarkable. The patient's UA was consistent with urinary tract infection. Patient's CBC was unremarkable. Patient's lipase and CMP were normal. Treatment course: The patient received 50 g of fentanyl and a GI cocktail initially in the emergency department with significant improvement in discomfort. Patient's pain recurred in the treatment was repeated. The patient received Pepcid and Rocephin IV for her peptic ulcer disease and UTI. Departure Impression Impression: Primary Impression: Peptic ulcer disease Additional Impression: UTI (urinary tract infection) Qualified Codes: N30.00 - Acute cystitis without hematuria Disposition: HOME, SELF-CARE Condition: Improved Departure-Patient Inst. Decision time for Depature: 18:30 Referrals: [facility] (PCP/Family) Primary Care Physician Patient Instructions: Acid Reflux (GERD), Adolescent (DC), Acute Cystitis (DC) Add. Discharge Instructions: Pepcid, Vicodin, and Macrobid as prescribed. Close follow-up with [facility]. Return if any problems or questions. All discharge instructions reviewed with patient and/or family. Voiced understanding. CHIN BERRIOS MD Aug 11, 2017 14:02
[2017-08-11 14:08] LABS: BACTERIA,URINE TRACE /HPF
[2017-08-11] MEDS ORDERED: NS 100 ML (IVPB) BAG IV ONE (14:15)
[2017-08-11] MEDS ORDERED: IOHEXOL 350 MG/ML 100 ML (OMNIPAQUE 350) VIAL IV ONE (14:15)
[2017-08-11 14:20] LABS: ALANINE AMINOTRANSFERASE 31 U/L (0-55); ALBUMIN 3.5 GM/DL (3.2-4.5); ALKALINE PHOSPHATASE 70 U/L (40-136); BILIRUBIN,TOTAL 0.3 MG/DL (0.1-1.0); BUN/CREATININE RATIO 17; CALCIUM 8.2 MG/DL (8.5-10.1); CARBON DIOXIDE 23 MMOL/L (21-32); CHLORIDE 107 MMOL/L (98-107); CREATININE SERUM 0.54 MG/DL (0.60-1.30); GFR ESTIMATED > 60; GLUCOSE 101 MG/DL (70-105); LIPASE 16 U/L (8-78); POTASSIUM 3.3 MMOL/L (3.6-5.0); SODIUM 139 MMOL/L (135-145); TOTAL PROTEIN 6.4 GM/DL (6.4-8.2)
--- NOTE | 2017-08-11 15:23 | Diagnostic Imaging Report ---
PROCEDURE: CT abdomen and pelvis with contrast. TECHNIQUE: Multiple contiguous axial images were obtained through the abdomen and pelvis after administration of intravenous contrast. INDICATION: Abdominal pain for 3 days. FINDINGS: Low-density is seen throughout the liver which may be due to fatty infiltration. No gallbladder inflammation is identified and there is no evidence of biliary ductal dilatation. No gastric or splenic lesion is detected. The pancreas and adrenal glands are also unremarkable. There is no evidence of renal lesion or hydronephrosis. No free fluid is seen in the abdomen or pelvis. Note is made of prominent vessels in the left parametrium with a prominent draining left gonadal vein. There is prominence of the endometrium with a probable 2 cm cyst in the right ovary. IMPRESSION: The left parametrial vasculature is prominent, likely related to pelvic venous congestion. The possibility of a varicocele is excluded. There is no evidence of thrombosis or other acute abnormality. Prominence of the endometrium may be related to menstrual cycle and clinical correlation would be of use. Dictated by: Dictated on workstation # [id number]
[2017-08-11] MEDS ORDERED: FAMOTIDINE 20MG/2ML IV (PEPCID) IVP ONE (17:30)
[2017-08-11] MEDS ORDERED: cefTRIAXone INJECTION 1,000 MG in D5W 50 ML IVPB SOLUTION 50 ML IV ONE (17:30)
[2017-08-11 18:37] VITALS: BP 101/64
== END 2017-08-11 18:37 | disposition home or self-care (01) ==
LOC: EDUNIT# 12:48 → ER 12:51
DX: K27.9 Peptic ulcer, site unspecified, unspecified as acute or chronic, without hemorrhage or perforation (principal); N39.0 Urinary tract infection, site not specified
CPT/HCPCS: 36415; 74177; 80053; 81000; 83690; 84703; 85025; 87088; 96361; 96365; 96375; 96376

== ENCOUNTER → 2018-09-24 | Outpatient (CLI) | payer OTHER ==
--- NOTE | 2018-09-24 20:06 | Diagnostic Imaging Report ---
INDICATION: Left breast pain. Correlation is made with prior mammogram from 10/07/2016. 2-D and 3-D bilateral diagnostic mammography was performed with a Computer Aided Detection (CAD) system. FINDINGS: Both breasts remain heterogeneously dense, limiting the sensitivity of mammography. The parenchymal pattern is stable. No mass or malignant appearing microcalcifications are seen. Axillae are unremarkable. IMPRESSION: No mammographic features suspicious for malignancy are identified. Even so, sonographic interrogation of area of pain in left breast is recommended and will be performed today. ACR BI-RADS Category 0: Incomplete. (Needs additional imaging evaluation). Result letter will be mailed to the patient. Note: At least 10% of breast cancer is not imaged by mammography. Dictated by: Dictated on workstation # [id number]
--- NOTE | 2018-09-24 21:00 | Diagnostic Imaging Report ---
INDICATION: Pain in the left breast. COMPARISON: Correlation is made with diagnostic mammogram earlier th same day. EXAMINATION: Sonographic interrogation of the area of pain in the left breast was performed. FINDINGS: This correlates to the 12 to 3 o'clock location of the left breast. No sonographic abnormality is seen. No solid or cystic mass is detected. IMPRESSION: No sonographic abnormality is identified at the area of the patient's pain. Clinical followup is recommended. Dictated by: Dictated on workstation # [id number]
== END ==
LOC: RAD 09:05
PROVIDERS: ATTEND Nurse Practitioner Family
DX: N64.4 Mastodynia (principal)
CPT/HCPCS: 76642; 77066

== ENCOUNTER 2019-07-16 07:45 | Inpatient (IN) | payer OTHER ==
[2019-07-16] VITALS (66 sets, daily range): BP systolic 82–182; BP diastolic 47–111
[~2019-07-16] VITALS: Ht 155 cm; Wt 96.3 kg
[2019-07-16] MEDS ORDERED: D5 LR IV SOLUTION 1,000 ML IV ONE (07:50)
--- NOTE | 2019-07-16 07:54 | History & Physical ---
History and Physical Date Seen by Provider: Jul 16, 2019 Time Seen by Provider: 07:48 This patient is a 47-year-old 7 para 5 A1 female who presents for induction of labor at 38-3/7 weeks' gestation with gestational diabetes. She denies rupture membranes or bleeding. Her diabetes has been controlled with diet. She has had no complications with this . Allergies are none Medications are vitamins Medical history is significant for gestational diabetes Surgical history is negative Obstetric history includes vaginal deliveries and 1994 2002 2004 2009 and 2011 - the patient has had 1 miscarriage Family history is noncontributory Patient denies tobacco drug and alcohol use. Lab work performed in my clinic on this patient shows a blood type of O+ with a negative antibody screen Hemoglobin at 28 weeks gestation was 10.8 with platelet count of 280,000 Rubella status is immune Hepatitis B surface antigen was negative HIV was negative TSH was normal VDRL nonreactive Pap smear in February 2019 was normal 1 hour Glucola on 10 2819 had a value 163 The 3 hour GTT had values of 198 121 122 and 89 at one to 3 hours and fasting respectively Physical exam HEENT exam is normal Neck is supple no lymphadenopathy no thyromegaly Abdomen is gravid soft nontender nondistended Extremities show no clubbing or cyanosis. There is no Homans sign. Pelvic exam is pending last exam in clinic showed a cervix 3 cm dilated over 50 percent effaced and 0 station soft and midplane requesting to a Sullivan score of at least 8 Assessment and plan term at 38+ weeks' gestation in a patient with gestational diabetes. Patient is admitted now for labor induction with anticipation for vaginal delivery. 38+ week gestation with gestational diabetes admitted for labor induction Allergies and Home Medications Allergies Coded Allergies: NKANo Known Allergies (Unverified Allergy, Mild, 2) Home Medications Vit No.124/Iron/FA 1 Each Tablet, 1 EACH PO DAILY, (Reported) Patient Home Medication List Home Medication List Reviewed: Yes NATALIO SALAMANCA MD Jul 16, 2019 07:54
[2019-07-16] MEDS ORDERED: OXYTOCIN/NORMAL SALINE 500 ML IV SCH ×2 (07:55→22:16)
[2019-07-16] MEDS: D5 LR IV SOLUTION 1,000 ML IV SCH ×3 (08:00→20:33)
[2019-07-16 08:27] LABS: BASOPHILS % (AUTO) 0 % (0-10); EOSINOPHILS # (AUTO) 0.1 10^3/uL (0.0-0.3); EOSINOPHILS % (AUTO) 1 % (0-10); HEMATOCRIT 32 % (35-52); HEMOGLOBIN 10.9 G/DL (11.5-16.0); LYMPHOCYTES # (AUTO) 2.2 X 10^3 (1.0-4.0); LYMPHOCYTES % (AUTO) 34 % (12-44); MEAN CORPUSCULAR HEMOGLOBIN 29 PG (25-34); MEAN CORPUSCULAR HGB CONC 34 G/DL (32-36); MEAN CORPUSCULAR VOLUME 86 FL (80-99); MEAN PLATELET VOLUME 10.1 FL (7.4-10.4); MONOCYTES # (AUTO) 0.6 X 10^3 (0.0-1.0); MONOCYTES % (AUTO) 9 % (0-12); NEUTROPHILS # (AUTO) 3.8 X 10^3 (1.8-7.8); NEUTROPHILS % (AUTO) 57 % (42-75); PLATELET COUNT 243 10^3/uL (130-400); RED CELL DISTRIBUTION WIDTH 14.8 % (10.0-14.5); WHITE BLOOD COUNT 6.6 10^3/uL (4.3-11.0)
[2019-07-16] MEDS ORDERED: FLU QUADRIvalent (5+ YOA) 2019-2020 (AFLURIA) 0.5 ML IM ONE (10:00)
[2019-07-16] MEDS ORDERED: PREN-142 PO (10:26)
--- NOTE | 2019-07-16 10:26 | NUR ---
ELOISA CHEEMA presented to unit via ambulation from home, accompanied by and children , with c/o INDUCTION. ELOISA CHEEMA weighed, gowned, voided, and to bed. EFHM and TOCO applied, VS taken. ELOISA CHEEMA oriented to bed controls, call light, TV, heat, and A/C controls. Addendum: 07/16/19 at 1029 by CRISTOPHER GROSSMAN RN Correct time is 0700.
[2019-07-16] MEDS ORDERED: BUTORPHANOL INJ 2 MG/ML (STADOL) VIAL ONE (17:55)
[2019-07-16] MEDS ORDERED: BUTORPHANOL INJ 2 MG/ML (STADOL) VIAL IV ONE (18:00)
[2019-07-16] MEDS ORDERED: SUFENTA 0.6MCG/ML BUPIVA 0.125 100 ML ONE (18:50)
[2019-07-16] MEDS ORDERED: LACTATED RINGERS 1,000 ML IV SCH (19:39)
[2019-07-16] MEDS ORDERED: EPIDURAL (SUFENTA 0.6MCG/ML BUPIVA 0.125%) 100 ML BAG EPI SCH (19:45)
[2019-07-16] MEDS ORDERED: diphenhydrAMINE 50 MG/ML INJ (BENADRYL) IV PRN (19:45)
[2019-07-16] MEDS ORDERED: ONDANSETRON 4 MG/2 ML (SDV) Z0FRAN IV PRN (19:45)
[2019-07-16] MEDS ORDERED: NALOXONE 0.4 MG/ML 1 ML (NARCAN) VIAL IV PRN ×2 (19:45)
[2019-07-16] MEDS ORDERED: METOCLOPRAMIDE INJ 10 MG/2 ML (REGLAN) IV PRN (19:45)
[2019-07-16] MEDS ORDERED: LIDOCAINE/EPI 2% 1:200,00 (XYLOCAINE) 10 ML VIAL ONE (20:20)
[2019-07-16] MEDS ORDERED: TETANUS,DIPTH,PERTUSS P/F (BOOSTRIX) 0.5 ML VIAL IM ONE (22:30)
[2019-07-16] MEDS ORDERED: MEASLES,MUMPS,RUBELLA 1 EA INJ SC ONE (22:30)
[2019-07-16] MEDS ORDERED: BENZOCAINE/MENTHOL (DERMOPLAST) 56 ML CAN TP PRN (22:30)
[2019-07-16] MEDS ORDERED: KETOROLAC 30 MG/ML VIAL IVP SCH (22:30)
[2019-07-16] MEDS ORDERED: ONDANSETRON 4 MG/2 ML (SDV) Z0FRAN IVP PRN (22:30)
--- NOTE | 2019-07-17 00:30 | NUR ---
pericare completed. pt ambulated to bathroom, positive void pericare completed, pt assisted to w'c and taken down to 311. pt assisted to bed. orientated to room. daughter at bedside to interpret. pt denies any needs at this time. will continue to monitor.
[2019-07-17 03:23] VITALS: BP 110/61
[2019-07-17] MEDS: IBUPROFEN 800 MG (MOTRIN) TAB PO SCH ×4 (04:45→23:01)
[2019-07-17 08:00] VITALS: BP 99/59
--- NOTE | 2019-07-17 08:32 | Anesthesia-Regional Post-Op ---
Regional Patient Condition Mental Status: Alert, Oriented x3 Circulation: Same as Pre-Op Headache: Absent Sensation: Full Recovery Motor Block: Absent Post Op Complications Complications None Follow Up Care/Instructions Patient Instructions None needed. Anesthesia/Patient Condition Patient is doing well, no complaints, stable vital signs, no apparent adverse anesthesia problems. No complications reported per nursing. IRA MELO CRNA Jul 17, 2019 08:32
[2019-07-17] MEDS: DOCUSATE SODIUM 100 MG (COLACE) CAP PO SCH ×2 (09:11→19:57)
[2019-07-17] MEDS: oxyCODONE/APAP 5/325MG (PERCOCET 5) TABLET PO PRN ×2 (09:11→17:06)
--- NOTE | 2019-07-17 09:17 | Progress Note ---
Standard Progress Note Progress Notes/Assess & Plan Date Seen by a Provider: Jul 17, 2019 Time Seen by a Provider: 09:16 Progress/Assessment & Plan This patient is without complaint. Vital Signs 07/17/19 08:00 Temp 36.9 Pulse 81 Resp 16 B/P (MAP) 99/59 (72) Pulse Ox 99 O2 Delivery Room Air Vital signs are stable. Patient is afebrile. Fundus is firm below the umbilicus and nontender. Extremities show no clubbing or cyanosis. There is no Homans sign. Assessment and plan day number 1 doing well. discharge home today or tomorrow as requested by patient Final Diagnosis 38 week spontaneous vaginal delivery NATALIO SALAMANCA MD Jul 17, 2019 09:17
[2019-07-17] MEDS ORDERED: IBUP-1780 PO (09:18)
--- NOTE | 2019-07-17 09:19 | Discharge Instructions ---
Discharge Instructions Discharge Medications New, Converted or Re-Newed RX: Call to Patients Pharmacy Patient Instructions Return to The Hospital For: As directed Activity & Diet Discharge Diet: No Restrictions Activity as Tolerated: No Orders-Post D/C & Referrals Follow Up Appt: Call to make follow up appt. for patient in 4 weeks. Activity Per routine post vaginal delivery instructions. Please call in RX to patient pharmacy. Diet as tolerated Patient may shower or tub bathe as desired. NATALIO SALAMANCA MD Jul 17, 2019 09:19
--- NOTE | 2019-07-17 11:57 | OPERATIVE REPORT ---
DATE OF SERVICE: 07/16/2019 DELIVERY NOTE The patient delivered by term spontaneous vaginal delivery a viable male with Apgars of 9 and 9 at 1 and 5 minutes respectively, weight of 8 pounds 4 ounces, time of 2111 and a cord blood pH that is pending. The infant delivered over an intact perineum under epidural analgesia. The was bulb suctioned on delivery of the head and again on completion of delivery. Umbilical cord was doubly clamped, father cut the cord, the baby was passed to mom's abdomen. Baby had a spontaneous cry, was quickly pink, moved all extremities and had excellent tone and reflexes. The was bulb suctioned on delivery of the head and again on completion of delivery. Father cut the cord. Once it was doubly clamped after becoming pulseless, the baby was passed to mom's abdomen. Placenta delivered spontaneously [place], after cord bloods were obtained. The placenta was normal with a 3-vessel cord. The cervix, vagina, rectum, and perineum were examined and found intact. Placenta was sent to pathology for permanent section secondary to gestational diabetes. Blood loss was around 200 mL. Sponge and needle counts were correct. The patient tolerated the delivery well and remained in the LDR for recovery. The baby remained with the mom. Job ID: [id number] DocumentID: [id number] Dictated Date: 07/16/2019 21:25:55 Rn Case Manager Date: 07/17/2019 11:57:19 Dictated By: NATALIO SALAMANCA MD
[2019-07-17 12:00] VITALS: BP 94/60
[2019-07-17 19:57] VITALS: BP 91/57
--- NOTE | 2019-07-17 20:30 | NUR ---
pt resting in bed. family at bedside. pt denies any needs at this time. will continue to monitor
[2019-07-18 01:17] VITALS: BP 109/66
[2019-07-18] MEDS: IBUPROFEN 800 MG (MOTRIN) TAB PO SCH (05:11)
--- NOTE | 2019-07-18 07:00 | NUR ---
REPORT FROM JEAN GONZALEZ.
--- NOTE | 2019-07-18 07:24 | Progress Note ---
Standard Progress Note Progress Notes/Assess & Plan Date Seen by a Provider: Jul 18, 2019 Time Seen by a Provider: 07:23 Progress/Assessment & Plan This patient is without complaint. Vital Signs 07/17/19 08:00 Temp 36.9 Pulse 81 Resp 16 B/P (MAP) 99/59 (72) Pulse Ox 99 O2 Delivery Room Air Vital signs are stable. Patient is afebrile. Fundus is firm below the umbilicus and nontender. Extremities show no clubbing or cyanosis. There is no Homans sign. Assessment and plan day number 1 doing well. discharge home today or tomorrow as requested by patient July 18, 2019 Patient without complaint. She is ambulating, voiding, tolerating oral intake well and has good pain control. Patient is requesting discharge home. Vital Signs Date Time Temp Pulse Resp B/P (MAP) Pulse Ox O2 Delivery O2 Flow Rate FiO2 07/18/19 01:17 37.2 75 16 109/66 (80) Room Air 07/17/19 19:57 37.1 77 16 91/57 (68) Room Air 07/17/19 16:00 36.3 78 16 97 Room Air 07/17/19 12:00 36.8 84 20 94/60 (71) 97 Room Air 07/17/19 09:00 99 Room Air 07/17/19 08:00 36.9 81 16 99/59 (72) 99 Room Air I & O 07/18/19 07:00 Intake Total 920 ml Balance 920 ml Vital signs are stable. Patient is afebrile. Fundus is firm below the umbilicus and nontender. Extremities show no cyanosis. There is no Homans sign. Assessment and plan day number 2 status post term spontaneous vaginal delivery at 38+ weeks gestation. Plan is for discharge home with follow-up in clinic Final Diagnosis 38+ weeks spontaneous vaginal delivery NATALIO SALAMANCA MD Jul 18, 2019 07:24
--- NOTE | 2019-07-18 08:00 | NUR ---
DR SALAMANCA HERE NEW ORDERS RECEIVED.
[2019-07-18 08:30] VITALS: BP 113/65
--- NOTE | 2019-07-18 08:30 | NUR ---
INITIAL ASSESSMENT COMPLETED, VSS, NO DISTRESS NOTED, SEE INTERVENTIONS FOR DETAILED ASSESSMENT, PTS DAUGHTER HERE AND TRANSLATED BETWEEN STAFF AND PATIENTS.
[2019-07-18] MEDS: DOCUSATE SODIUM 100 MG (COLACE) CAP PO SCH (09:30)
[2019-07-18 11:55] VITALS: BP 109/66
--- NOTE | 2019-07-18 12:00 | NUR ---
D/C INSTRUCTIONS EXPLAINED, SIGNED, PT VERBALIZES UNDERSTANDING OF FOLLOW UP CARE AND INSTRUCTIONS NO DISTRESS NOTED.
--- NOTE | 2019-07-18 13:00 | NUR ---
PT AMBULATED TO PRIVATE CAR WITH STAFF AND FAMILY AT SIDE, SECURED IN REAR FACING CAR SEAT.
== END 2019-07-18 13:00 | disposition home or self-care (01) | DRG 807 ==
LOC: LDRP 07:45
PROVIDERS: ADMIT Obstetrics & Gynecology; ATTEND Obstetrics & Gynecology
PROC: 10E0XZZ Delivery of Products of Conception, External Approach (ICD-10-PCS; principal; 2019-07-16)
PROC: 3E033VJ Introduction of Other Hormone into Peripheral Vein, Percutaneous Approach (ICD-10-PCS; 2019-07-16)
DX: O24.420 Gestational diabetes mellitus in childbirth, diet controlled (principal); Z3A.38 38 weeks gestation of pregnancy; Z37.0 Single live birth; Z23 Encounter for immunization
CPT/HCPCS: 36415; 82962; 85025; 86850; 86900; 86901; 90715

== ENCOUNTER 2021-01-20 01:14 | Observation (INO) | payer SELFPAY ==
[~2021-01-20] VITALS: Ht 152.4 cm; Wt 82.5 kg
[~2021-01-20 01:14] MED LIST changes: +IBUP-1780 PO; +PREN-142 PO
[2021-01-20] MEDS ORDERED: ASPIRIN 81 MG CHEW (CHILDREN'S ASA) PO ONE (01:45)
[2021-01-20 01:47] LABS: BASOPHILS % (AUTO) 0 % (0-10); EOSINOPHILS # (AUTO) 0.1 10^3/uL (0.0-0.3); EOSINOPHILS % (AUTO) 1 % (0-10); HEMATOCRIT 38 % (35-52); HEMOGLOBIN 12.8 g/dL (11.5-16.0); LYMPHOCYTES # (AUTO) 2.5 10^3/uL (1.0-4.0); LYMPHOCYTES % (AUTO) 30 % (12-44); MEAN CORPUSCULAR HEMOGLOBIN 29 pg (25-34); MEAN CORPUSCULAR HGB CONC 34 g/dL (32-36); MEAN CORPUSCULAR VOLUME 85 fL (80-99); MEAN PLATELET VOLUME 9.2 fL (9.0-12.2); MONOCYTES # (AUTO) 0.8 10^3/uL (0.0-1.0); MONOCYTES % (AUTO) 9 % (0-12); NEUTROPHILS % (AUTO) 60 % (42-75); PLATELET COUNT 277 10^3/uL (130-400); WHITE BLOOD COUNT 8.4 10^3/uL (4.3-11.0)
--- NOTE | 2021-01-20 01:48 | ED Chest Pain ---
General Chief Complaint: Chest Pain Stated Complaint: CP,LEFT ARM NUMB Nursing Triage Note: intermittant reproducable left sided chest pain since 1400. Source: patient, family Exam Limitations: language barrier History of Present Illness Date Seen by Provider: Jan 20, 2021 Time Seen by Provider: 01:26 Initial Comments Patient to the ER by private conveyance with her significant other who interprets [place] for her Polish. Chief complaint of intermittent chest pain since yesterday about 2:00 while sitting in a chair. Any kind of exertion makes it worse over her left chest. Not worse with direct palpation. No cough but she has had some chills. No measured fever. She had some nausea with the pain initially. No history of coronary disease but she does not follow with a doctor routinely. She does not know about diabetes cholesterol or hypertension. She does not have a known family history of heart disease. She is just felt worse over the past day. She has a 1-1/2-year-old child at home she is caring for of her own. She has not taken anything since Tylenol was given yesterday afternoon 1:00 PM for headache. Poor appetite. Denies diarrhea or constipation. No surgeries. Patient had epigastric abdominal pain worked up in the ER her 3 years ago. Pain was relieved with GI cocktail and had unremarkable work-up with CT imaging labs and urine. Allergies and Home Medications Allergies Coded Allergies: NKANo Known Allergies (Unverified Allergy, Mild, 09/01/16) Home Medications No Active Prescriptions or Reported Meds Patient Home Medication List Home Medication List Reviewed: Yes Review of Systems Review of Systems Constitutional: No chills, No diaphoresis, No fever EENTM: No Blurred Vision, No Double Vision Respiratory: Denies Cough; Shortness of Air, SOA With Exertion Cardiovascular: See HPI, Chest Pain Gastrointestinal: Denies Abdomen Distended, Denies Abdominal Pain, Denies Constipated, Denies Diarrhea; Nausea; Denies Vomiting Genitourinary: Denies Burning, Denies Discharge Musculoskeletal: No back pain, No joint pain All Other Systems Reviewed Negative Unless Noted: Yes Past Svtdibl-Uarpyf-Racnmo Hx Patient Social History Tobacco Use?: No Use of E-Cig and/or Vaping dev: No Substance use?: No Alcohol Use?: No Pt feels they are or have been: No Immunizations Up To Date Tetanus Booster (TDap): Less than 5yrs PED Vaccines UTD: No Seasonal Allergies Seasonal Allergies: No Past Medical History Surgeries: No Respiratory: No Currently Using CPAP: No Currently Using BIPAP: No Cardiac: No Neurological: No Reproductive Disorders: No Sexually Transmitted Disease: No HIV/AIDS: No Genitourinary: No Gastrointestinal: No Musculoskeletal: No Endocrine: No HEENT: No Cancer: No Psychosocial: No Integumentary: No Blood Disorders: No Adverse Reaction/Blood Tranf: No Family Medical History Patient reports no known family medical history. Physical Exam Vital Signs Vital Signs - First Documented Capillary Refill : Less Than 3 Seconds Height, Weight, BMI Height: 5'5" Weight: 180lbs. oz. 81.741584up; 33.00 BMI Method:Stated General Appearance: WD/WN, Mild Distress HEENT: PERRL/EOMI, Pharynx Normal, Moist Mucous Membranes Neck: Full Range of Motion, Normal Inspection, Non Tender Respiratory: Chest Non Tender, Lungs Clear, Normal Breath Sounds, No Accessory Muscle Use, Respiratory Distress (Mild. Oxygen saturations drift down to 88% as she falls asleep. Respiratory rate in the mid 20s.) Cardiovascular: Regular Rate, Rhythm, No Edema Gastrointestinal: Normal Bowel Sounds, No Organomegaly, Non Tender, Soft Extremity: Normal Capillary Refill, Normal Inspection Neurologic/Psychiatric: Alert, Oriented x3 Skin: Normal Color, Warm/Dry Progress/Results/Core Measures Results/Orders Lab Results Laboratory Tests Test 01/20/21 01:40 01/20/21 01:43 01/20/21 02:48 Range/Units White Blood Count 8.4 4.3-11.0 10^3/uL Red Blood Count 4.45 3.80-5.11 10^6/uL Hemoglobin 12.8 11.5-16.0 g/dL Hematocrit 38 35-52 % Mean Corpuscular Volume 85 80-99 fL Mean Corpuscular Hemoglobin 29 25-34 pg Mean Corpuscular Hemoglobin Concent 34 32-36 g/dL Red Cell Distribution Width 13.2 10.0-14.5 % Platelet Count 277 130-400 10^3/uL Mean Platelet Volume 9.2 9.0-12.2 fL Immature Granulocyte % (Auto) 0 % Neutrophils (%) (Auto) 60 42-75 % Lymphocytes (%) (Auto) 30 12-44 % Monocytes (%) (Auto) 9 0-12 % Eosinophils (%) (Auto) 1 0-10 % Basophils (%) (Auto) 0 0-10 % Neutrophils # (Auto) 5.0 1.8-7.8 10^3/uL Lymphocytes # (Auto) 2.5 1.0-4.0 10^3/uL Monocytes # (Auto) 0.8 0.0-1.0 10^3/uL Eosinophils # (Auto) 0.1 0.0-0.3 10^3/uL Basophils # (Auto) 0.0 0.0-0.1 10^3/uL Immature Granulocyte # (Auto) 0.0 0.0-0.1 10^3/uL Prothrombin Time 13.1 12.2-14.7 SEC INR Comment 1.0 0.8-1.4 Activated Partial Thromboplast Time 25 24-35 SEC D-Dimer < 0.27 0.00-0.49 UG/ML Sodium Level 140 135-145 MMOL/L Potassium Level 3.5 L 3.6-5.0 MMOL/L Chloride Level 102 98-107 MMOL/L Carbon Dioxide Level 26 21-32 MMOL/L Anion Gap 12 5-14 MMOL/L Blood Urea Nitrogen 16 7-18 MG/DL Creatinine 0.69 0.60-1.30 MG/DL Estimat Glomerular Filtration Rate > 60 BUN/Creatinine Ratio 23 Glucose Level 83 70-105 MG/DL Calcium Level 9.0 8.5-10.1 MG/DL Corrected Calcium 8.8 8.5-10.1 MG/DL Magnesium Level 2.1 1.6-2.4 MG/DL Total Bilirubin 0.5 0.1-1.0 MG/DL Aspartate Amino Transf (AST/SGOT) 24 5-34 U/L Alanine Aminotransferase (ALT/SGPT) 22 0-55 U/L Alkaline Phosphatase 76 40-136 U/L Myoglobin 96.5 H 10.0-92.0 NG/ML Troponin I < 0.028 <0.028 NG/ML B-Type Natriuretic Peptide 19.4 <100.0 PG/ML Total Protein 7.4 6.4-8.2 GM/DL Albumin 4.2 3.2-4.5 GM/DL Serum Test, Qualitative NEGATIVE NEGATIVE Influenza Type A (RT-PCR) Not Detected Not Detecte Influenza Type B (RT-PCR) Not Detected Not Detecte SARS-CoV-2 RNA (RT-PCR) Not Detected Not Detecte Blood Gas Puncture Site R RADIAL Blood Gas Patient Temperature 97.8 Arterial Blood pH 7.44 H 7.37-7.43 Arterial Blood Partial Pressure CO2 42 35-45 MMHG Arterial Blood Partial Pressure O2 39 *L 79-93 MMHG Arterial Blood HCO3 28 H 23-27 MMOL/L Arterial Blood Total CO2 29.3 21.0-31.0 MMOL/L Arterial Blood Oxygen Saturation 71 L 94-100 % Arterial Blood Base Excess 4.0 H -2.5-2.5 MMOL/L Merlin Test YES-POS Blood Gas Ventilator Setting NO Blood Gas Inspired Oxygen ROOM AIR My Orders Orders - RASHARD TIERNEY Continuous Ekg Monitoring (01/20/21 01:18) Ekg Tracing (01/20/21 01:18) Cbc With Automated Diff (01/20/21 01:40) Magnesium (01/20/21 01:40) Chest 1 View, Ap/Pa Only (01/20/21 01:40) Comprehensive Metabolic Panel (01/20/21 01:40) Myoglobin Serum (01/20/21 01:40) Protime With Inr (01/20/21 01:40) Partial Thromboplastin Time (01/20/21 01:40) O2 (01/20/21 01:40) Ed Iv/Invasive Line Start (01/20/21 01:40) BNP (01/20/21 01:40) Fibrin Degradation Products (01/20/21 01:40) Troponin I (01/20/21 01:40) Aspirin Chewable Tablet (Baby Aspirin Ch (01/20/21 01:45) Covid 19 Inhouse Test (01/20/21 01:40) Influenza A And B By Pcr (01/20/21 01:40) Hcg,Qualitative Serum (01/20/21 01:40) Arterial Blood Gas (01/20/21 02:42) Medications Given in ED Vital Signs/I&O 01/20/21 01/20/21 01:24 01:24 Temp 37.0 Pulse 80 Resp 18 B/P (MAP) 144/86 (105) Pulse Ox 95 O2 Delivery Room Air Room Air Blood Pressure Mean: 105 Progress Progress Note #1: Time: 01:46 Progress Note Concern for COVID-19 or similar viral issue given her relative hypoxia with sleep. Sleep apnea could also explain it however she did desat even while talking to the examiner. Lungs sound clear. We will get a chest x-ray give her some aspirin and evaluate her troponin as well as for infection. Progress Note #2: Time: 02:41 Progress Note Patient has continued to have multiple transient episodes of hypoxia lasting for just seconds at a time down to 88%. Her Covid is negative. Perhaps she has a false negative. Would like to observe her little longer. There is no dysrhythm ias. We can repeat a troponin and get an ABG. She may be more reasonable to observe in the hospital. Progress Note #3: Time: 03:04 Progress Note ABG shows significant hypoxemia with metabolic alkalosis. CO2 is unperturbed. She is not having any reported history of nausea or vomiting. She does not appear to be terribly dehydrated nor does she have renal or liver failure. Plan to give her some fluids and seek an observation study. Her oxygen sats have dropped several times into the seventies and eighties but spontaneously resolved back into the mid nineties. She denies taking any medicines supplements [id number] to suggest milk-alkali syndrome. She is not hypokalemic. Genetic disorders include Bartter, G[place]man, [place], aldosteronism or mineralocorticoid excess. Patient still having about a 6 out of 10 chest pain but reports that after receiving the vial of clear liquid through her IV, normal saline this brought her pain down from a 10. Initial ECG Impression Date: Jan 20, 2021 Initial ECG Impression Time: 01:33 Initial ECG Rate: 83 Initial ECG Rhythm: Normal Sinus Initial ECG Intervals: Normal Initial ECG Impression: Normal Initial ECG Comparisson: No Previous ECG Available Comment Normal sinus rhythm without clinically relevant ST elevation or depression Diagnostic Imaging Diagonstic Imaging: Xray Plain Films/CT/US/NM/MRI: chest Comments No acute cardiopulmonary process on 1 view chest x-ray. [facility], [place] NAME: ELOISA CHEEMA MED REC#: [id number] PT STATUS: ADM Rickie : 1980 PHYSICIAN: RASHARD TIERNEY MD ADMIT DATE: 01/20/21 Signed Date of Exam:01/20/21 CHEST 1 VIEW, AP/PA ONLY EXAMINATION: Chest radiograph, portable AP view. DATE: 01/20/2021 2:32 AM INDICATION: 40-year-old female, chest pain. COMPARISON: None. FINDINGS: Heart size and mediastinal contours are unremarkable. There is no identified pneumothorax. There is no large pleural effusion. There is no identified focal airspace consolidation. IMPRESSION: No identified acute cardiopulmonary abnormality. Dictated by: Dictated on workstation # [id number] Dict: 01/20/21605 Trans: 01/20/21824 [facility] [id number] Interpreted by: OSMAN MATOS MD Electronically signed by: OSMAN MATOS MD 01/20/21824 Reviewed: Reviewed by Me Departure Communication (Admissions) Time/Spoke to Admitting Phy: 03:10 Discussed the case with Dr. Viveros and she agrees to observe the patient for the hypoxemia. At this time we do not feel it necessary to continue to keep her as a PUI with no known exposures or other symptoms. Time/Spoke to Consulting Phy: 03:15 Discussed the case with Dr. Liu and he agrees to consult on the case for her chest pain. Impression Primary Impression: Hypoxemia Additional Impressions: Malaise and fatigue Acute coronary syndrome Disposition: ADMITTED INPATIENT Condition: Stable Admissions Decision to Admit Reason: Admit from ER (General) Decision to Admit/Date: Jan 20, 2021 Time/Decision to Admit Time: 03:00 Departure-Patient Inst. Referrals: [facility] (PCP/Family) Primary Care Physician Scripts No Active Prescriptions or Reported Meds RASHARD TIERNEY Jan 20, 2021 01:47
[2021-01-20 01:58] LABS: ALBUMIN 4.2 GM/DL (3.2-4.5); CHLORIDE 102 MMOL/L (98-107); POTASSIUM 3.5 MMOL/L (3.6-5.0); SODIUM 140 MMOL/L (135-145)
[2021-01-20 01:59] LABS: PROTHROMBIN TIME PATIENT 13.1 SEC (12.2-14.7)
[2021-01-20 02:00] LABS: GLUCOSE 83 MG/DL (70-105); TOTAL PROTEIN 7.4 GM/DL (6.4-8.2)
[2021-01-20 02:01] LABS: CARBON DIOXIDE 26 MMOL/L (21-32)
[2021-01-20 02:02] LABS: BILIRUBIN,TOTAL 0.5 MG/DL (0.1-1.0)
[2021-01-20 02:03] LABS: ALKALINE PHOSPHATASE 76 U/L (40-136)
[2021-01-20 02:04] LABS: CREATININE SERUM 0.69 MG/DL (0.60-1.30); GFR ESTIMATED > 60
[2021-01-20 02:05] LABS: BUN/CREATININE RATIO 23
[2021-01-20 02:06] LABS: MAGNESIUM 2.1 MG/DL (1.6-2.4)
[2021-01-20 02:07] LABS: ALANINE AMINOTRANSFERASE 22 U/L (0-55)
[2021-01-20 02:58] LABS: ABG OXYGEN SATURATION 71 % (94-100); ABG PCO2 42 MMHG (35-45); ABG PH 7.44 (7.37-7.43); ABG TCO2 29.3 MMOL/L (21.0-31.0)
[2021-01-20 02:59] LABS: ALLENS TEST YES-POS; INSPIRED O2 ROOM AIR; VENTILATOR NO
[2021-01-20 03:00] LABS: PATIENT TEMP 97.8
[2021-01-20 03:01] LABS: ABG PO2 39 MMHG (79-93)
[2021-01-20] MEDS ORDERED: ACETAMINOPHEN 325 MG TABLET PO PRN (04:00)
[2021-01-20] MEDS ORDERED: ONDANSETRON 4 MG/2 ML (SDV) Z0FRAN IVP PRN ×2 (04:00→04:15)
[2021-01-20 04:02] VITALS: BP 142/90
[2021-01-20] MEDS: LACTATED RINGERS 1,000 ML IV SCH ×2 (04:08→09:11)
[2021-01-20] MEDS ORDERED: NITROGLYCERIN 0.4 MG SL TABS BTL 25'S SL PRN (04:15)
[2021-01-20] MEDS ORDERED: morphine INJ 4 MG/ML 1 ML (VIAL/SYRINGE) IV PRN (04:15)
--- NOTE | 2021-01-20 07:43 | Diagnostic Imaging Report ---
EXAMINATION: Chest radiograph, portable AP view. DATE: 01/20/2021 2:32 AM INDICATION: 40-year-old female, chest pain. COMPARISON: None. FINDINGS: Heart size and mediastinal contours are unremarkable. There is no identified pneumothorax. There is no large pleural effusion. There is no identified focal airspace consolidation. IMPRESSION: No identified acute cardiopulmonary abnormality. Dictated by: Dictated on workstation # [id number]
[2021-01-20 08:00] VITALS: BP 126/81
[2021-01-20] MEDS ORDERED: ENOXAPARIN 100 MG/1 ML (LOVENOX) SYR SC SCH (08:30)
[2021-01-20 08:44] LABS: ABG BASE EXCESS 1.6 MMOL/L (-2.5-2.5); ABG OXYGEN SATURATION 94 % (94-100); ABG PCO2 42 MMHG (35-45); ABG PO2 66 MMHG (79-93); ABG TCO2 27.2 MMOL/L (21.0-31.0)
[2021-01-20] MEDS ORDERED: ENOXAPARIN 80 MG/0.8 ML (LOVENOX) SYR SC SCH (08:45)
[2021-01-20 08:46] LABS: PATIENT TEMP 36.7
[2021-01-20] MEDS ORDERED: ASPIRIN E.C. 81 MG (ECOTRIN) TAB PO SCH (09:00)
[2021-01-20] MEDS ORDERED: IOHEXOL 350 MG/ML 100 ML (OMNIPAQUE 350) VIAL IV ONE (10:00)
[2021-01-20] MEDS ORDERED: HOLD METFORMIN - RECEIVED CONTRAST 20 ML VIAL IV SCH (10:00)
[2021-01-20] MEDS ORDERED: NS 100 ML (IVPB) BAG IV ONE (10:00)
--- NOTE | 2021-01-20 11:07 | Diagnostic Imaging Report ---
PROCEDURE: CT angiography of the chest with contrast. TECHNIQUE: Multiple contiguous axial images were obtained through the chest after uneventful bolus administration of intravenous contrast. 3D reconstructed CTA MIP acquisitions were also performed. Auto Exposure Controls were utilized during the CT exam to meet ALARA standards for radiation dose reduction. Indication: Dyspnea and chest pain. Comparison: Chest x-ray same day. Discussion: No pulmonary embolus identified. The thoracic aorta is normal in caliber and configuration. Normal heart size. No pleural or pericardial fluid. No focal consolidation or suspicious pulmonary lesion. No adenopathy. The visualized upper abdomen is unremarkable. No acute osseous abnormality identified. Impression: 1. No pulmonary embolus or other acute abnormality identified within the chest. Dictated by: Dictated on workstation # [id number]
[2021-01-20 12:00] VITALS: BP 134/79
--- NOTE | 2021-01-20 12:17 | Short Stay Summary-Hospitalist ---
History of Present Illness HPI/Chief Complaint Pt is a 40yoCF with no known past medical history who presented to the ER due to shortness of breath and chest pain. She states it started yesterday after noon at rest and was worse with exertion. She had been coughing as well. She denies any muscle strain, fever, sick contacts. She was monitored in the ER and noted to have low pulse oximetry randomly down to the 70s and recovered on her own with reported good waveform. This prompted an ABG which showed a PaO2 of 39 and metabolic acidosis. She was admitted for observation. On my exam this morning she reports she is feeling very well and would like to discharge home to be with her son. She denies any chest pain or shortness of breath. Source: patient Exam Limitations: language barrier (patient declined interpretor phone- son interpretted at her request) Date Seen 01/20/21 Time Seen by a Provider: 12:15 Attending Physician Suzi Viveros MD [facility] Referring Physician Date of Admission Jan 20, 2021 at 03:15 Home Medications & Allergies Home Medications Reviewed patient Home Medication Reconciliation performed by pharmacy medication reconciliations food science technician and/or nursing. Patients Allergies have been reviewed. Allergies Allergies Coded Allergies NKANo Known Allergies (Unverified Allergy, Mild, 09/01/16) Past Tmdmwvf-Knxjwx-Njjokx Hx Patient Social History Tobacco Use?: No Use of E-Cig and/or Vaping dev: No Substance use?: No Alcohol Use?: No Pt feels they are or have been: No Immunizations Up To Date Tetanus Booster (TDap): Unknown Hepatitis A: No Hepatitis B: No PED Vaccines UTD: No Seasonal Allergies Seasonal Allergies: No Current Status status: No Advance Directives: No Communicates: Verbally Primary Language: Ethiopian Preferred Spoken Language: Ethiopian Is interpretation needed?: Yes Sensory deficits: Other Implanted or Applied Medical D: None Past Medical History Currently Using CPAP: No Currently Using BIPAP: No Sexually Transmitted Disease: No HIV/AIDS: No Blood Disorders: No Adverse Reaction/Blood Tranf: No Family Medical History Patient reports no known family medical history. Review of Systems Constitutional: chills; No diaphoresis; malaise; No weakness EENTM: no symptoms reported Respiratory: see HPI; No cough; short of breath Cardiovascular: see HPI, chest pain Gastrointestinal: no symptoms reported Genitourinary: no symptoms reported Musculoskeletal: no symptoms reported Skin: no symptoms reported Psychiatric/Neurological: No Symptoms Reported Physical Exam Physical Exam Vital Signs Vital Signs - First Documented Capillary Refill : Less Than 3 Seconds Height, Weight, BMI Height: 5'5" Weight: 180lbs. oz. 81.919826gs; 35.52 BMI Method:Stated General Appearance: No Apparent Distress, WD/WN, Obese HEENT: PERRL/EOMI, Moist Mucous Membranes; No Scleral Icterus (L), No Scleral Icterus (R) Neck: Normal Inspection, Supple Respiratory: Lungs Clear, No Accessory Muscle Use, No Respiratory Distress Cardiovascular: Regular Rate, Rhythm, No JVD, No Murmur Gastrointestinal: Normal Bowel Sounds, Non Tender, Soft Extremity: Normal Capillary Refill, Non Tender, No Pedal Edema Neurologic/Psychiatric: Alert, Oriented x3, Normal Mood/Affect Skin: Normal Color, Warm/Dry Results Results/Procedures Labs Laboratory Tests 01/20/21 01:40 Patient resulted labs reviewed. Imaging: Reviewed Imaging Films, Reviewed Imaging Report [facility] [place] NAME: DENIELOISA MED REC#: [id number] PT STATUS: ADM Rickie : 1980 PHYSICIAN: RASHARD TIERNEY MD ADMIT DATE: 01/20/21 Signed Date of Exam:01/20/21 CHEST 1 VIEW, AP/PA ONLY EXAMINATION: Chest radiograph, portable AP view. DATE: 01/20/2021 2:32 AM INDICATION: 40-year-old female, chest pain. COMPARISON: None. FINDINGS: Heart size and mediastinal contours are unremarkable. There is no identified pneumothorax. There is no large pleural effusion. There is no identified focal airspace consolidation. IMPRESSION: No identified acute cardiopulmonary abnormality. Dictated by: Dictated on workstation # [id number] Dict: 01/20/21605 Trans: 01/20/[address] [facility] [id number] Interpreted by: OSMAN MATOS MD Electronically signed by: OSMAN MATOS MD 01/20/2125 [facility] [place] [facility] [id number] PT STATUS: ADM Rickie : 1980 PHYSICIAN: SUZI VIVEROS MD ADMIT DATE: 01/20/21 Draft Date of Exam:01/20/21 CT ANGIO CHEST W PROCEDURE: CT angiography of the chest with contrast. TECHNIQUE: Multiple contiguous axial images were obtained through the chest after uneventful bolus administration of intravenous contrast. 3D reconstructed CTA MIP acquisitions were also performed. Auto Exposure Controls were utilized during the CT exam to meet ALARA standards for radiation dose reduction. Indication: Dyspnea and chest pain. Comparison: Chest x-ray same day. Discussion: No pulmonary embolus identified. The thoracic aorta is normal in caliber and configuration. Normal heart size. No pleural or pericardial fluid. No focal consolidation or suspicious pulmonary lesion. No adenopathy. The visualized upper abdomen is unremarkable. No acute osseous abnormality identified. Impression: 1. No pulmonary embolus or other acute abnormality identified within the chest. Dictated on workstation # [id number] Dict: 01/20/21 1018 Trans: 01/20/[address] [facility] [id number] Interpreted by: EILZABETH FLOOD MD Electronically signed by: Short Stay Diagnosis Discharge Diagnosis-Short Stay Admission Diagnosis transient hypoxia Final Discharge Diagnosis transient hypoxia Conclusion Plan transient hypoxia etiology unclear but ABG likely lab error Repeat ABG much improved serial Troponin negative Chest XR clear CTA ordered and negative for acute abnormality, specifically PE Cardiology consulted, echo normal per verbal report Plan to DC home per patient request Recommended follow up with Dr Mayorga in 2 weeks and establishing with PCP in 1 week Diagnosis/Problems Diagnosis/Problems (1) Hypoxemia Status: Acute Clinical Quality Measures AMI/AHF: ASA po Prior to arrival: No SUZI VIVEROS MD Jan 20, 2021 12:17
--- NOTE | 2021-01-20 12:53 | Discharge Inst-Simple/Standard ---
Discharge Inst-Standard Patient Instructions/Follow Up Plan of Care/Instructions/FU: Please continue to take your medicatiosn as written. Please follow up with a primary care doctor to follow up this hospital stay and with Dr Mayorga in 2 weeks. Activity as Tolerated: Yes Discharge Diet: No Restrictions Return to The Hospital For: Chest pain, shortness of breath, confusion, weakness, fever, if you feel you are getting worse. SUZI HOANG MD Jan 20, 2021 12:53
--- NOTE | 2021-01-20 13:31 | Consultation-Cardiology ---
HPI-Cardiology Cardiology Consultation Date of Consultation 01/20/21 Date of Admission Time Seen by Provider: 13:27 Indication: Shortness of breath HPI 40-year-old lady Danish-speaking, history was obtained with the assistance of a oil well logger. She did not have any previous history, has been having some cough, came into the emergency room with shortness of breath, reportedly had severe hypoxemia with PO2 of 39. Metabolic acidosis. She was admitted for observation. On my evaluation patient was laying down comfortably, reported that she is feeling significantly better. No chest pain was noted no palpitation. 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 Review of Systems-General Review of Systems Constitutional: chills; No diaphoresis; malaise; No weakness EENTM: no symptoms reported Respiratory: see HPI; No cough, No dyspnea on exertion, No hemoptysis, No orthopnea, No phlegm; short of breath; No stridor, No wheezing, No other Cardiovascular: see HPI, chest pain; No edema, No Hx of Intervention, No palpitations, No syncope, No vascular heart diseas, No other Gastrointestinal: no symptoms reported, see HPI Genitourinary: no symptoms reported, see HPI Musculoskeletal: no symptoms reported, see HPI Skin: no symptoms reported, see HPI Psychiatric/Neurological: No Symptoms Reported All Other Systems Reviewed Negative Unless Noted: Yes Reviewed Test Results Reviewed Test Results Lab Laboratory Tests Test 01/20/21 01:40 01/20/21 01:43 01/20/21 02:48 01/20/21 07:58 Range/Units White Blood Count 8.4 4.3-11.0 10^3/uL Red Blood Count 4.45 3.80-5.11 10^6/uL Hemoglobin 12.8 11.5-16.0 g/dL Hematocrit 38 35-52 % Mean Corpuscular Volume 85 80-99 fL Mean Corpuscular Hemoglobin 29 25-34 pg Mean Corpuscular Hemoglobin Concent 34 32-36 g/dL Red Cell Distribution Width 13.2 10.0-14.5 % Platelet Count 277 130-400 10^3/uL Mean Platelet Volume 9.2 9.0-12.2 fL Immature Granulocyte % (Auto) 0 % Neutrophils (%) (Auto) 60 42-75 % Lymphocytes (%) (Auto) 30 12-44 % Monocytes (%) (Auto) 9 0-12 % Eosinophils (%) (Auto) 1 0-10 % Basophils (%) (Auto) 0 0-10 % Neutrophils # (Auto) 5.0 1.8-7.8 10^3/uL Lymphocytes # (Auto) 2.5 1.0-4.0 10^3/uL Monocytes # (Auto) 0.8 0.0-1.0 10^3/uL Eosinophils # (Auto) 0.1 0.0-0.3 10^3/uL Basophils # (Auto) 0.0 0.0-0.1 10^3/uL Immature Granulocyte # (Auto) 0.0 0.0-0.1 10^3/uL Prothrombin Time 13.1 12.2-14.7 SEC INR Comment 1.0 0.8-1.4 Activated Partial Thromboplast Time 25 24-35 SEC D-Dimer < 0.27 0.00-0.49 UG/ML Sodium Level 140 135-145 MMOL/L Potassium Level 3.5 L 3.6-5.0 MMOL/L Chloride Level 102 98-107 MMOL/L Carbon Dioxide Level 26 21-32 MMOL/L Anion Gap 12 5-14 MMOL/L Blood Urea Nitrogen 16 7-18 MG/DL Creatinine 0.69 0.60-1.30 MG/DL Estimat Glomerular Filtration Rate > 60 BUN/Creatinine Ratio 23 Glucose Level 83 70-105 MG/DL Calcium Level 9.0 8.5-10.1 MG/DL Corrected Calcium 8.8 8.5-10.1 MG/DL Magnesium Level 2.1 1.6-2.4 MG/DL Total Bilirubin 0.5 0.1-1.0 MG/DL Aspartate Amino Transf (AST/SGOT) 24 5-34 U/L Alanine Aminotransferase (ALT/SGPT) 22 0-55 U/L Alkaline Phosphatase 76 40-136 U/L Myoglobin 96.5 H 10.0-92.0 NG/ML Troponin I < 0.028 < 0.028 <0.028 NG/ML B-Type Natriuretic Peptide 19.4 <100.0 PG/ML Total Protein 7.4 6.4-8.2 GM/DL Albumin 4.2 3.2-4.5 GM/DL Serum Test, Qualitative NEGATIVE NEGATIVE Influenza Type A (RT-PCR) Not Detected Not Detecte Influenza Type B (RT-PCR) Not Detected Not Detecte SARS-CoV-2 RNA (RT-PCR) Not Detected Not Detecte Blood Gas Puncture Site R RADIAL Blood Gas Patient Temperature 97.8 Arterial Blood pH 7.44 H 7.37-7.43 Arterial Blood Partial Pressure CO2 42 35-45 MMHG Arterial Blood Partial Pressure O2 39 *L 79-93 MMHG Arterial Blood HCO3 28 H 23-27 MMOL/L Arterial Blood Total CO2 29.3 21.0-31.0 MMOL/L Arterial Blood Oxygen Saturation 71 L 94-100 % Arterial Blood Base Excess 4.0 H -2.5-2.5 MMOL/L Merlin Test YES-POS Blood Gas Ventilator Setting NO Blood Gas Inspired Oxygen ROOM AIR Test 01/20/21 08:38 01/20/21 12:50 Range/Units Blood Gas Puncture Site LB Blood Gas Patient Temperature 36.7 Arterial Blood pH 7.40 7.37-7.43 Arterial Blood Partial Pressure CO2 42 35-45 MMHG Arterial Blood Partial Pressure O2 66 L 79-93 MMHG Arterial Blood HCO3 26 23-27 MMOL/L Arterial Blood Total CO2 27.2 21.0-31.0 MMOL/L Arterial Blood Oxygen Saturation 94 94-100 % Arterial Blood Base Excess 1.6 -2.5-2.5 MMOL/L Merlin Test NA Blood Gas Ventilator Setting NA Blood Gas Inspired Oxygen NA Troponin I < 0.028 <0.028 NG/ML Physical Exam Physical Exam Vital Signs Vital Signs - First Documented Capillary Refill : Less Than 3 Seconds Height, Weight, BMI Height: 5'5" Weight: 180lbs. oz. 81.073699lr; 35.52 BMI Method:Stated General Appearance: No Apparent Distress, WD/WN, Obese Eyes: Bilateral Eye Normal Inspection, Bilateral Eye PERRL, Bilateral Eye EOMI HEENT: PERRL/EOMI, Moist Mucous Membranes; No Scleral Icterus (L), No Scleral Icterus (R) Neck: Normal Inspection, Supple Respiratory: Lungs Clear, No Accessory Muscle Use, No Respiratory Distress Cardiovascular: Regular Rate, Rhythm, No JVD, No Murmur Gastrointestinal: Normal Bowel Sounds, Non Tender, Soft Back: Normal Inspection, No CVA Tenderness, No Vertebral Tenderness Extremity: Normal Capillary Refill, Non Tender, No Pedal Edema Neurologic/Psychiatric: Alert, Oriented x3, Normal Mood/Affect Skin: Normal Color, Warm/Dry Lymphatic: No Adenopathy A/P-Cardiology Admission Diagnosis Chest pain Shortness of breath Hypoxemia Anxiety Assessment/Plan Chest pain nonspecific etiology, atypical in presentation, EKG and cardiac enzymes did not show any acute abnormality, reassured the patient at this time, we can follow-up as an outpatient and I will consider a stress test as an outpatient Shortness of breath, questionable severe hypoxemia, I believe that the PO2 of 39 was a lab error or iatrogenic hypoxemia due to delay in processing the blood. There was questionable pulse oximetry with hypoxemia. Currently her oxygenation is better, patient is laying down comfortably, no further symptoms was noted. She was having mild cough, CT scan of the chest and D-dimer were negative. Anxiety, reporting improvement. Clinical Quality Measures AMI/AHF: ASA po Prior to arrival: MELINA Chin MD Jan 20, 2021 13:31
== END 2021-01-20 12:54 | disposition home or self-care (01) ==
LOC: EDUNIT# 01:14 → ER 01:18 → 4TH 03:15 → UNDOADMOB 03:15 → 4TH 03:50 → UNDODISOB 15:05
PROVIDERS: ADMIT Family Medicine; ATTEND Family Medicine
DX: R09.02 Hypoxemia (principal); R06.02 Shortness of breath; R53.83 Other fatigue; R07.9 Chest pain, unspecified; R53.81 Other malaise; I24.9 Acute ischemic heart disease, unspecified; E87.2 Acidosis; F41.9 Anxiety disorder, unspecified; Z20.822 Contact with and (suspected) exposure to COVID-19
CPT/HCPCS: 71045; 71275; 80053; 82805; 83735; 83874; 83880; 84484; 84703; 85025; 85379; 85610; 85730; 87636; 93005; 93306; 99285; G0378; 36415

== ENCOUNTER 2021-12-08 13:40 | Emergency (ER) | payer SELFPAY ==
[~2021-12-08] VITALS: Ht 152 cm; Wt 83.0 kg
[2021-12-08 13:55] LABS: BILIRUBIN,URINE NEGATIVE (NEGATIVE); CLARITY,URINE CLEAR; COLOR,URINE YELLOW; GLUCOSE, URINE (UA) NEGATIVE (NEGATIVE); KETONES,URINE NEGATIVE (NEGATIVE); LEUKOCYTE ESTERASE ,URINE NEGATIVE (NEGATIVE); NITRITE,URINE NEGATIVE (NEGATIVE); PROTEIN,URINE NEGATIVE (NEGATIVE)
[2021-12-08 14:10] LABS: BACTERIA,URINE NEGATIVE /HPF; SQUAMOUS EPITHELIAL CELL,UR 0-2 /HPF
--- NOTE | 2021-12-08 14:12 | ED GI ---
General Chief Complaint: Skin/Wound Problems Stated Complaint: STOMACH PAIN,RECTAL ISSUES Nursing Triage Note: PT PRESENTS TO ED POV FOR POSSIBLE ULCER LOCATED NEAR ANUS. PT STATES IT HAS BEEN THERE SINCE 12/04/20. PT REPORTS PAIN IS WORSE TODAY. PT WALKING WITH LIMP DUE TO DISCOMFORT. SON AT BEDSIDE. PT SPEAKS KHMER, RN BILINGUAL. Source of Information: Patient Exam Limitations: Language Barrier (Lupe, RN interprets) History of Present Illness Date Seen by Provider: December 08, 2021 Time Seen by Provider: 14:00 Initial Comments Patient to the ER by private conveyance with 4 days of significant pain, swelling from the left side of her perirectal area. She has not seen anybody about it yet. She does not have a history of fistulas or fissures. She is not having any fevers chills nausea or vomiting. Last oral intake was 11:00 this morning, 3 hours ago. She has allergies to penicillin. She is not having diarrhea, constipation. Allergies and Home Medications Allergies Coded Allergies: Penicillins (Verified Allergy, Unknown, RASH, 12/08/21) Patient Home Medication List Home Medication List Reviewed: Yes No Active Prescriptions or Reported Meds Review of Systems Review of Systems Constitutional: No chills, No diaphoresis, No fever EENTM: No Blurred Vision, No Double Vision Respiratory: Denies Cough, Denies Shortness of Air Cardiovascular: Denies Chest Pain Gastrointestinal: Denies Constipated, Denies Diarrhea, Denies Nausea Genitourinary: Denies Burning, Denies Discharge Musculoskeletal: No back pain, No joint pain Skin: see HPI All Other Systems Reviewed Negative Unless Noted: Yes Past Wdnmljn-Wxojbl-Zjsubu Hx Patient Social History Tobacco Use?: No Substance use?: No Alcohol Use?: No Pt feels they are or have been: No Immunizations Up To Date Tetanus Booster (TDap): Less than 5yrs PED Vaccines UTD: No Seasonal Allergies Seasonal Allergies: No Past Medical History Surgery/Hospitalization HX: PMH;DENIES. SURGERY;DENIES. Surgeries: No Respiratory: No Currently Using CPAP: No Currently Using BIPAP: No Cardiac: No Neurological: No Reproductive Disorders: No Sexually Transmitted Disease: No HIV/AIDS: No Genitourinary: No Gastrointestinal: No Musculoskeletal: No Endocrine: No HEENT: No Cancer: No Psychosocial: No Integumentary: No Blood Disorders: No Adverse Reaction/Blood Tranf: No Family Medical History Patient reports no known family medical history. Physical Exam Vital Signs Vital Signs - First Documented 12/08/21 13:51 Temp 36.8 Pulse 88 Resp 16 B/P (MAP) 132/80 (97) Pulse Ox 98 O2 Delivery Room Air Capillary Refill : Less Than 3 Seconds Height/Weight/BMI Height: 5'5" Weight: 180lbs. oz. 81.996999ap; 35.00 BMI Method:Stated General Appearance: WD/WN, mild distress HEENT: PERRL/EOMI, pharynx normal Neck: full range of motion, supple, normal inspection Respiratory: lungs clear, normal breath sounds, no respiratory distress, no accessory muscle use Cardiovascular: normal peripheral pulses, regular rate, rhythm Peripheral Pulses: 2+ Radial Pulses (R), 2+ Radial Pulses (L) Gastrointestinal: normal bowel sounds, non tender, soft Genital/Rectal: other (With the patient lying on her back at the 3 o'clock position is erythematous, swollen but not indurated or fluctuant. There are 2 fistula tracts about 1-1/2 cm lateral to the 3:00 wall of the anus draining mucopurulence.) Extremities: normal inspection, normal capillary refill Neurologic/Psychiatric: alert, normal mood/affect, oriented x 3 Progress/Results/Core Measures Results/Orders Lab Results Laboratory Tests Test 12/08/21 13:50 12/08/21 14:11 Range/Units Urine Color YELLOW Urine Clarity CLEAR Urine pH 7.0 5-9 Urine Specific [place] 1.015 L 1.016-1.022 Urine Protein NEGATIVE NEGATIVE Urine Glucose (UA) NEGATIVE NEGATIVE Urine Ketones NEGATIVE NEGATIVE Urine Nitrite NEGATIVE NEGATIVE Urine Bilirubin NEGATIVE NEGATIVE Urine Urobilinogen 1.0 < = 1.0 MG/DL Urine Leukocyte Esterase NEGATIVE NEGATIVE Urine RBC (Auto) 2+ H NEGATIVE Urine RBC 2-5 H /HPF Urine WBC NONE /HPF Urine Squamous Epithelial Cells 0-2 /HPF Urine Crystals NONE /LPF Urine Bacteria NEGATIVE /HPF Urine Casts NONE /LPF Urine Mucus NEGATIVE /LPF Urine Culture Indicated NO White Blood Count 10.3 4.3-11.0 10^3/uL Red Blood Count 4.00 3.80-5.11 10^6/uL Hemoglobin 11.6 11.5-16.0 g/dL Hematocrit 35 35-52 % Mean Corpuscular Volume 86 80-99 fL Mean Corpuscular Hemoglobin 29 25-34 pg Mean Corpuscular Hemoglobin Concent 34 32-36 g/dL Red Cell Distribution Width 13.2 10.0-14.5 % Platelet Count 274 130-400 10^3/uL Mean Platelet Volume 9.6 9.0-12.2 fL Immature Granulocyte % (Auto) 1 % Neutrophils (%) (Auto) 75 42-75 % Lymphocytes (%) (Auto) 17 12-44 % Monocytes (%) (Auto) 6 0-12 % Eosinophils (%) (Auto) 0 0-10 % Basophils (%) (Auto) 0 0-10 % Neutrophils # (Auto) 7.7 1.8-7.8 10^3/uL Lymphocytes # (Auto) 1.8 1.0-4.0 10^3/uL Monocytes # (Auto) 0.7 0.0-1.0 10^3/uL Eosinophils # (Auto) 0.0 0.0-0.3 10^3/uL Basophils # (Auto) 0.0 0.0-0.1 10^3/uL Immature Granulocyte # (Auto) 0.1 0.0-0.1 10^3/uL Sodium Level 140 135-145 MMOL/L Potassium Level 3.7 3.6-5.0 MMOL/L Chloride Level 106 98-107 MMOL/L Carbon Dioxide Level 22 21-32 MMOL/L Anion Gap 12 5-14 MMOL/L Blood Urea Nitrogen 9 7-18 MG/DL Creatinine 0.61 0.60-1.30 MG/DL Estimat Glomerular Filtration Rate 114 BUN/Creatinine Ratio 15 Glucose Level 129 H 70-105 MG/DL Calcium Level 9.0 8.5-10.1 MG/DL Corrected Calcium 9.2 8.5-10.1 MG/DL Total Bilirubin 0.4 0.1-1.0 MG/DL Aspartate Amino Transf (AST/SGOT) 59 H 5-34 U/L Alanine Aminotransferase (ALT/SGPT) 96 H 0-55 U/L Alkaline Phosphatase 104 40-136 U/L C-Reactive Protein High Sensitivity 6.53 H 0.00-0.50 MG/DL Total Protein 7.1 6.4-8.2 GM/DL Albumin 3.7 3.2-4.5 GM/DL My Orders Orders - KELSY,RASHARD J Ua Culture If Indicated (12/08/21 13:43) Urine Bedside (12/08/21 13:43) Fentanyl Inj (Sublimaze Injection) (12/08/21 14:15) Ed Iv/Invasive Line Start (12/08/21 14:07) Ns Iv 500 Ml (Sodium Chloride 0.9%) (12/08/21 14:15) Cbc With Automated Diff (12/08/21 14:07) Comprehensive Metabolic Panel (12/08/21 14:07) Hs C Reactive Protein (12/08/21 14:07) Metronidazole 500mg/100ml Ivpb (Flagyl 5 (12/08/21 14:15) Ciprofloxacin Iv 400mg/200ml (Cipro Iv S (12/08/21 14:15) Blood Culture (12/08/21 14:11) Medications Given in ED Current Medications Medications Dose Ordered Sig/Nell Route Start Time Stop Time Status Last Admin Dose Admin Ciprofloxacin/ Dextrose 200 ml @ 200 mls/hr ONCE ONCE IV 12/08/21 14:15 12/08/21 15:14 DC 12/08/21 14:34 200 MLS/HR Fentanyl Citrate 75 mcg ONCE ONCE IVP 12/08/21 14:15 12/08/21 14:16 DC 12/08/21 14:17 75 MCG Sodium Chloride 500 ml @ 0 mls/hr Q0M ONCE IV 12/08/21 14:15 12/08/21 14:16 DC 12/08/21 14:17 500 MLS/HR Vital Signs/I&O 12/08/21 13:51 Temp 36.8 Pulse 88 Resp 16 B/P (MAP) 132/80 (97) Pulse Ox 98 O2 Delivery Room Air Blood Pressure Mean: 97 Progress Progress Note : Time: 14:16 Progress Note Discussed the case with general surgery and they recommend if we get her pain under control that we start her on some antibiotics. Since it is draining and there does not appear to be any collected abscess and her vital signs are aseptic we can set her up for outpatient follow-up on Friday with Dr. Maloney and he will take her for an exam under anesthesia and appropriate surgical intervention after couple days of antibiotics have calm down the area. Departure Impression Primary Impression: Fistula, perirectal Disposition: HOME, SELF-CARE Condition: Stable Departure-Patient Inst. Decision time for Depature: 15:38 Ref[place]: [facility] [place] Primary Care Physician AMADOU MALONEY DO Patient Instructions: Anal Abscess and Fistula, Adult (DC) Add. Discharge Instructions: Sitz baths with Epson salt as often as necessary for pain and swelling control. Drink plenty of fluids. Hydrocodone 1 to 2 tablets every 4 hours as needed for severe breakthrough pain. Colace 2 tablets twice a day to keep your stool soft. MiraLAX 1-4 times a day as necessary to stay regular. 1 capful of MiraLAX in 6 ounces of fluid. Probiotics 1 capsule twice a day for the next week to prevent diarrhea caused by the antibiotics. 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 Ondansetron 1 tablet every 6 hours under the tongue as necessary for nausea and/or vomiting. Call Dr. Maloney at 8:00 in the morning to make a follow-up appointment the same day and get set up for appropriate intervention. Return to the ER if you are having intractable vomiting, fever above 102.5 or other uncontrolled symptoms. All discharge instructions reviewed with patient and/or family. Voiced understanding. Scripts Metronidazole (Metronidazole) 500 Mg Tablet 500 MG PO TID for 7 Days, #21 TAB 0 Refills Prov: RASHARD TIERNEY 12/08/21 Ciprofloxacin HCl (Ciprofloxacin HCl) 500 Mg Tablet 500 MG PO BID for 7 Days, #14 TAB 0 Refills Prov: RASHARD TIERNEY 12/08/21 Hydrocodone/Acetaminophen (Hydrocodone-Acetamin 5-325 mg) 5 Mg-325 Mg Tablet 1-2 TAB PO Q6H PRN for PAIN-MODERATE (5-7), #25 TAB 0 Refills Prov: RASHARD TIERNEY 12/08/21 Ondansetron (Ondansetron Odt) 4 Mg Tab.rapdis 4 MG PO Q6H PRN for NAUSEA/VOMITING, #8 TAB 0 Refills Prov: RASHARD TIERNEY 12/08/21 Work/School Note: Work Release Form Date Seen in the Emergency Department: December 08, 2021 Return to Work: December 12, 2021 Restrictions: Need Release from Doctor Copy Copies To 1: AMADOU MALONEY DO RASHARD TIERNEY December 08, 2021 14:12
[2021-12-08] MEDS ORDERED: metroNIDAZOLE 500MG/100ML IVPB 100 ML IV ONE (14:15)
[2021-12-08] MEDS ORDERED: fentaNYL INJ 100 MCG/2 ML AMP IVP ONE (14:15)
[2021-12-08] MEDS ORDERED: CIPROFLOXACIN IV 400MG/200ML 200 ML IV ONE (14:15)
[2021-12-08] MEDS ORDERED: NS IV 500 ML 500 ML IV ONE (14:15)
[2021-12-08 14:20] LABS: BASOPHILS % (AUTO) 0 % (0-10); EOSINOPHILS % (AUTO) 0 % (0-10); HEMATOCRIT 35 % (35-52); HEMOGLOBIN 11.6 g/dL (11.5-16.0); LYMPHOCYTES # (AUTO) 1.8 10^3/uL (1.0-4.0); LYMPHOCYTES % (AUTO) 17 % (12-44); MEAN CORPUSCULAR HEMOGLOBIN 29 pg (25-34); MEAN CORPUSCULAR HGB CONC 34 g/dL (32-36); MEAN CORPUSCULAR VOLUME 86 fL (80-99); MEAN PLATELET VOLUME 9.6 fL (9.0-12.2); MONOCYTES # (AUTO) 0.7 10^3/uL (0.0-1.0); MONOCYTES % (AUTO) 6 % (0-12); NEUTROPHILS # (AUTO) 7.7 10^3/uL (1.8-7.8); NEUTROPHILS % (AUTO) 75 % (42-75); PLATELET COUNT 274 10^3/uL (130-400); WHITE BLOOD COUNT 10.3 10^3/uL (4.3-11.0)
[2021-12-08 14:43] LABS: ALBUMIN 3.7 GM/DL (3.2-4.5); POTASSIUM 3.7 MMOL/L (3.6-5.0)
[2021-12-08 14:46] LABS: TOTAL PROTEIN 7.1 GM/DL (6.4-8.2)
[2021-12-08 14:47] LABS: BILIRUBIN,TOTAL 0.4 MG/DL (0.1-1.0)
[2021-12-08 14:49] LABS: CREATININE SERUM 0.61 MG/DL (0.60-1.30)
[2021-12-08] MEDS ORDERED: ONDA4TAB11 PO (15:37)
[2021-12-08] MEDS ORDERED: ACHD5005 PO (15:37)
[2021-12-08] MEDS ORDERED: METR-145 PO (15:37)
[2021-12-08] MEDS ORDERED: CIPR500T5 PO (15:37)
[2021-12-08] MEDS ORDERED: HYDROcodone/APAP 5 MG/325 MG (LORTAB) TAB PO ONE (15:45)
[2021-12-08 17:06] VITALS: BP 108/65
== END 2021-12-08 17:06 | disposition home or self-care (01) ==
LOC: EDUNIT# 13:40 → ER 13:42
DX: K60.4 Rectal fistula (principal)
CPT/HCPCS: 36415; 80053; 81000; 85025; 86141; 87040

== ENCOUNTER 2023-01-29 05:35 | Outpatient (CLI) | payer OTHER ==
[~2023-01-29] VITALS: Ht 160 cm; Wt 89.8 kg
[~2023-01-29 05:35] MED LIST changes: +CIPR500T5 PO; +METR-145 PO; +ONDA4TAB11 PO
[2023-02-05] MEDS ORDERED: ACHD5005 PO (09:27)
== END 2023-02-03 15:56 ==
LOC: PREOP 05:35
PROVIDERS: ATTEND Surgery
DX: Z01.818 Encounter for other preprocedural examination (principal)